=== PATIENT | female | born 1965 | race Caucasian/White ===

== ENCOUNTER 2019-07-20 15:30 | Inpatient (IN) | payer BC, OTHER ==
[2019-07-20] MEDS ORDERED: SODIUM CHLORIDE 0.9% 500 ML 500 ML IV STA (15:44)
[2019-07-20] MEDS ORDERED: SODIUM CHLORIDE 0.9% 1,000 ML IV STA ×2 (15:44)
[2019-07-20] MEDS ORDERED: ONDANSETRON 4 MG/2 ML VIAL IVP STA (15:49)
[2019-07-20] MEDS: MORPHINE SULFATE 2 MG/ML SYRINGE IVP STA ×2 (16:10→17:38)
[2019-07-20 16:19] LABS: Basophils % (A) 0 %; Eosinophils # (A) 0.3 k/uL (0-0.7); Eosinophils % (A) 2 %; HCT 45.7 % (34.0-46.0); HGB 14.5 gm/dL (11.4-16.0); Hypochromasia Slight; Lymphocytes # (A) 1.1 k/uL (1.0-4.8); Lymphocytes % (A) 5 %; MCH 27.6 pg (25.0-35.0); MCHC 31.8 g/dL (31.0-37.0); MCV 86.7 fL (80.0-100.0); Mean Platelet Volume 8.3; Monocytes # (A) 0.5 k/uL (0-1.0); Monocytes % (A) 2 %; Neutrophils # (A) 18.5 k/uL (1.3-7.7); Neutrophils % (A) 90 %; Platelet Count 341 k/uL (150-450); RBC 5.27 m/uL (3.80-5.40); RDW 13.7 % (11.5-15.5); WBC 20.4 k/uL (3.8-10.6)
[2019-07-20 16:27] LABS: ALT 15 U/L (4-34); AST 16 U/L (14-36); African American GFR (CKD) >90 (>60 ml/min/1.73 sqM); Albumin 5.1 g/dL (3.5-5.0); Alkaline Phosphatase 102 U/L (38-126); Amylase 96 U/L (30-110); Anion Gap 21 mmol/L; Blood Urea Nitrogen 14 mg/dL (7-17); Calcium 10.3 mg/dL (8.4-10.2); Carbon Dioxide 18 mmol/L (22-30); Chloride 98 mmol/L (98-107); Glucose 361 mg/dL (74-99); Non-African American GFR(CKD) >90 (>60 ml/min/1.73 sqM); Potassium 4.2 mmol/L (3.5-5.1); Sodium 137 mmol/L (137-145); Total Bilirubin 0.8 mg/dL (0.2-1.3); Total Protein 8.4 g/dL (6.3-8.2)
--- NOTE | 2019-07-20 16:50 | US ---
EXAMINATION TYPE: US abdomen limited DATE OF EXAM: 07/20/2019 COMPARISON: NONE CLINICAL HISTORY: RUQ/epigastric pain. Vomiting. Difficult and limited exam due to overlying bowel ga s and patient vomiting during exam EXAM MEASUREMENTS: Liver Length: 16.6 cm Gallbladder Wall: 0.2 cm CBD: 0.5 cm Right Kidney: 10.3 x 6.1 x 5.9 cm Pancreas: Obscured by bowel gas Liver: Heterogeneous, coarse echotexture. Attenuating Gallbladder: wnl Evidence for sonographic Farley's sign: No CBD: wnl as visualized, distal portion obscured by bowel gas Right Kidney: No hydronephrosis or masses seen Suboptimal evaluation of pancreas on images saved. Visualized liver is heterogeneously hyperechoic. E valuation for focal masses suboptimal due to the heterogeneity. Gallbladder and right kidney appear w ithin normal limits. IMPRESSION: No shadowing mobile gallstones or ultrasound evidence for acute cholecystitis. Marked het erogeneous hyperechoic appearance of the liver could reflect product of diffuse fatty infiltration an d/or underlying hepatocellular disease. Correlate clinically.
[2019-07-20 17:06] LABS: Appearance,Urine Clear (Clear); Bilirubin,Urine Negative (Negative); Blood,Urine Trace (Negative); Color,Urine Light Yellow; Glucose,Urine (UA) 4+ (Negative); Leukocyte Esterase,Urine Negative (Negative); Mucus,Urine Rare /hpf; Nitrite,Urine Negative (Negative); PH, Urine 5.5 (5.0-8.0); Protein,Urine 1+ (Negative); RBC,Urine 1 /hpf (0-5); Specific Gravity,Urine 1.032 (1.001-1.035); Squamous Epithelial Cell,Urine 1 /hpf (0-4); Urobilinogen,Urine <2.0 mg/dL (<2.0); WBC,Urine 1 /hpf (0-5)
--- NOTE | 2019-07-20 17:07 | ED ---
Abdominal Pain HPI - General Source: patient Mode of arrival: wheelchair Limitations: no limitations <Obdulia Coelho - Last Filed: 07/20/19 19:47> <Freda Peña - Last Filed: 07/23/19 23:57> - General Chief Complaint: Abdominal Pain Stated Complaint: Vomitng Time Seen by Provider: 07/20/19 15:39 - History of Present Illness Initial Comments: 53-year-old. History of diabetes presented for chief complaint of nausea vomiting abdominal pain. Patient states that she has had nausea vomiting abdominal pain for the past week. She states has been getting worse. Patient states she feels slightly short of breath. Patient denies any chest pain. Patient denies any fevers or cough. Patient admit to diarrhea and states that today there was some blood in in but not all of the stool was blood. Patient states that the abdominal pain is upper in nature. Patient was concerned maybe it was related to her gallbladder. Patient denies any additional complaints. Upon arrival patient is actively vomiting up clear liquid she states she just drank a lot of water. (Obdulia Coelho) - Related Data Home Medications Medication Instructions Recorded Confirmed Atorvastatin [Lipitor] 40 mg PO DAILY 07/20/19 07/20/19 Dextroamphetamine/Amphetamine 20 mg PO DAILY 07/20/19 07/20/19 [Adderall] Fluticasone Nasal [place] [Flonase 2 spr EA NOSTRIL DAILY 07/20/19 07/20/19 Nasal [place]] Lisinopril [Zestril] 2.5 mg PO DAILY 07/20/19 07/20/19 glipiZIDE [Glucotrol] 5 mg PO HS 07/20/19 07/20/19 glipiZIDE [Glucotrol] 10 mg PO DAILY 07/20/19 07/20/19 metFORMIN HCL ER [Glucophage Xr] 1,500 mg PO AC-SUPPER 07/20/19 07/20/19 Allergies Allergy/AdvReac Type Severity Reaction Status Date / Time No Known Allergies Allergy Verified 07/20/19 19:09 Review of Systems ROS Other: All systems not noted in ROS Statement are negative. <Obdulia Coelho - Last Filed: 07/20/19 19:47> ROS Other: All systems not noted in ROS Statement are negative. <Freda Peña - Last Filed: 07/23/19 23:57> ROS Statement: Those systems with pertinent positive or pertinent negative responses have been documented in the HPI. Past Medical History Past Medical History: Diabetes Mellitus History of Any Multi-Drug Resistant Organisms: None Reported Past Surgical History: Section, Tubal Ligation Past Psychological History: ADD/ADHD Smoking Status: Current every day smoker Past Alcohol Use History: None Reported Past Drug Use History: Marijuana <Obdulia Coelho - Last Filed: 07/20/19 19:47> General Exam Limitations: no limitations <LaquitaObdulia Church - Last Filed: 07/20/19 19:47> - General Exam Comments Initial Comments: General: The patient is awake and alert, in no distress, actively vomiting Eye: Pupils are equal, round and reactive to light, extra-ocular movements are intact. No nystagmus. There is normal conjunctiva bilaterally. No signs of icterus. Cardiovascular: There is a regular rate and rhythm. No murmur, rub or gallop is appreciated. Respiratory: Lungs are clear to auscultation, respirations are non-labored, breath sounds are equal. No wheezes, stridor, rales, or rhonchi. Gastrointestinal: Soft, non-distended, diffusely tender abdomen without masses or organomegaly noted. There is no rebound or guarding present. Musculoskeletal: Normal ROM, no tenderness. Strength 5/5. Sensation intact. Pulses equal bilaterally 2+. Neurological: A&O x 3. CN II-XII intact grossly, There are no obvious motor or sensory deficits. Coordination appears grossly intact. Speech is normal. Skin: Skin is warm and dry and no rashes or lesions are noted. Psychiatric: Cooperative, appropriate mood & affect, normal judgment. (Obdulia Coelho) Course Vital Signs 07/20/19 07/20/19 07/20/19 15:34 17:39 18:55 Temperature 97.9 F 98.6 F 98.1 F Pulse Rate 87 83 Pulse Rate [ 88 Pulse Oximetery ] Respiratory 18 28 H 20 Rate Blood Pressure 152/82 153/62 Blood Pressure 155/80 [Right Arm] O2 Sat by Pulse 100 98 100 Oximetry 07/20/19 07/20/19 07/20/19 19:39 20:28 21:14 Temperature 97.6 F 97.8 F Pulse Rate 92 92 88 Pulse Rate [ Pulse Oximetery ] Respiratory 18 22 20 Rate Blood Pressure 153/72 143/63 137/52 Blood Pressure [Right Arm] O2 Sat by Pulse 98 98 98 Oximetry Medical Decision Making - Lab Data Result diagrams: 07/20/19 16:00 07/20/19 16:00 <Obdulia Coelho - Last Filed: 07/20/19 19:47> - Lab Data Result diagrams: 07/23/19 10:21 07/23/19 10:21 <Freda Peña - Last Filed: 07/23/19 23:57> - Medical Decision Making 53-year-old diabetic who has no previous history of DKA presenting today for chief complaint of nausea vomiting diarrhea some blood was noted in the diarrhea as well as abdominal cramping. On CT patient is found to have a colitis which is consistent patient's history. Patient was found to be in DKA with anion gap of 21, acetone positive and +4 glucose and ketones in urine-which was more likel precipitated by the colitis (illness). Patient has not been able to keep an ything down and therefore starvation is compounding the ketosis. Patient initiated on zosyn given leukocytosis and blood in stool concern for infectious colitis. Blood culture pending. Will have GI on consultation. Patient Give IV fluids and insulin drip in the ER. Patient on telemetry remains a hold in the ER but further care will be provided by the accepting admitting provider which has been accepted. Dr. Peña agreeable to care plan (Obdulia Coelho) I was available for consultation in the emergency department. The history and physical exam were done by the midlevel provider. I was consulted for this patients care. I reviewed the case with the midlevel provider and based on their presentation of the patient, I agree with the assessment, medical decision making and plan of care as documented. Patient admitted to Dr. Mast. Chart was dictated using Sw[employer] dictation software. Attempts were made to correct any dictation errors however some typographical errors may persist. Patient was seen during a national state of emergency due to the Covid-19 pandemic. (Freda Peña) - Lab Data Lab Results 07/20/19 07/20/19 07/20/19 Range/Units 16:00 16:00 16:00 WBC 20.4 H (3.8-10.6) k/uL RBC 5.27 (3.80-5.40) m/uL Hgb 14.5 (11.4-16.0) gm/dL Hct 45.7 (34.0-46.0) % MCV 86.7 (80.0-100.0) fL MCH 27.6 (25.0-35.0) pg MCHC 31.8 (31.0-37.0) g/dL RDW 13.7 (11.5-15.5) % Plt Count 341 (150-450) k/uL Neutrophils % 90 % Lymphocytes % 5 % Monocytes % 2 % Eosinophils % 2 % Basophils % 0 % Neutrophils # 18.5 H (1.3-7.7) k/uL Lymphocytes # 1.1 (1.0-4.8) k/uL Monocytes # 0.5 (0-1.0) k/uL Eosinophils # 0.3 (0-0.7) k/uL Basophils # 0.0 (0-0.2) k/uL Hypochromasia Slight Sample Site ABG pH (7.35-7.45) ABG pCO2 (35-45) mmHg ABG pO2 (83-108) mmHg ABG HCO3 (21-25) mmol/L ABG Total CO2 (19-24) mmol/L ABG O2 Saturation (94-97) % ABG Base Excess mmol/L Izaiah Test FiO2 % Sodium 137 (137-145) mmol/L Potassium 4.2 (3.5-5.1) mmol/L Chloride 98 (98-107) mmol/L Carbon Dioxide 18 L (22-30) mmol/L Anion Gap 21 mmol/L BUN 14 (7-17) mg/dL Creatinine 0.62 (0.52-1.04) mg/dL Est GFR (CKD-EPI)AfAm >90 (>60 ml/min/1.73 sqM) Est GFR (CKD-EPI)NonAf >90 (>60 ml/min/1.73 sqM) Glucose 361 H (74-99) mg/dL Lactic Ac Sepsis Rflx Plasma Lactic Acid David (0.7-2.0) mmol/L Calcium 10.3 H (8.4-10.2) mg/dL Phosphorus 3.6 (2.5-4.5) mg/dL Magnesium 2.1 (1.6-2.3) mg/dL Total Bilirubin 0.8 (0.2-1.3) mg/dL AST 16 (14-36) U/L ALT 15 (4-34) U/L Alkaline Phosphatase 102 (38-126) U/L Total Protein 8.4 H (6.3-8.2) g/dL Albumin 5.1 H (3.5-5.0) g/dL Amylase 96 (30-110) U/L Lipase 650 H (23-300) U/L Acetone, Qual Positive (Negative) 07/20/19 07/20/19 07/20/19 Range/Units 16:00 18:13 18:45 WBC (3.8-10.6) k/uL RBC (3.80-5.40) m/uL Hgb (11.4-16.0) gm/dL Hct (34.0-46.0) % MCV (80.0-100.0) fL MCH (25.0-35.0) pg MCHC (31.0-37.0) g/dL RDW (11.5-15.5) % Plt Count (150-450) k/uL Neutrophils % % Lymphocytes % % Monocytes % % Eosinophils % % Basophils % % Neutrophils # (1.3-7.7) k/uL Lymphocytes # (1.0-4.8) k/uL Monocytes # (0-1.0) k/uL Eosinophils # (0-0.7) k/uL Basophils # (0-0.2) k/uL Hypochromasia Sample Site lrad ABG pH 7.39 (7.35-7.45) ABG pCO2 32 L (35-45) mmHg ABG pO2 73 L (83-108) mmHg ABG HCO3 20 L (21-25) mmol/L ABG Total CO2 21 (19-24) mmol/L ABG O2 Saturation 95.0 (94-97) % ABG Base Excess -5.4 mmol/L Izaiah Test Yes FiO2 21 % Sodium (137-145) mmol/L Potassium (3.5-5.1) mmol/L Chloride (98-107) mmol/L Carbon Dioxide (22-30) mmol/L Anion Gap mmol/L BUN (7-17) mg/dL Creatinine (0.52-1.04) mg/dL Est GFR (CKD-EPI)AfAm (>60 ml/min/1.73 sqM) Est GFR (CKD-EPI)NonAf (>60 ml/min/1.73 sqM) Glucose (74-99) mg/dL Lactic Ac Sepsis Rflx Y Plasma Lactic Acid David 2.2 H* (0.7-2.0) mmol/L Calcium (8.4-10.2) mg/dL Phosphorus (2.5-4.5) mg/dL Magnesium (1.6-2.3) mg/dL Total Bilirubin (0.2-1.3) mg/dL AST (14-36) U/L ALT (4-34) U/L Alkaline Phosphatase (38-126) U/L Total Protein (6.3-8.2) g/dL Albumin (3.5-5.0) g/dL Amylase (30-110) U/L Lipase (23-300) U/L Acetone, Qual (Negative) Disposition Is patient prescribed a controlled substance at d/c from ED?: No Time of Disposition: 18:30 Decision to Admit Reason: Admit from EC Decision Date: 07/20/19 Decision Time: 18:30 <Obdulia Coelho - Last Filed: 07/20/19 19:47> <Freda Peña - Last Filed: 07/23/19 23:57> Clinical Impression: DKA (diabetic ketoacidoses), Vomiting, Nausea, Abdominal pain, Colitis Disposition: ADMITTED IP TO THIS HOSP Condition: Stable
[2019-07-20 17:13] LABS: Ketones,Urine 4+ (Negative)
[2019-07-20] MEDS ORDERED: SODIUM CHLORIDE 0.9% 1,000 ML IV ONE (17:14)
--- NOTE | 2019-07-20 18:02 | XR ---
EXAMINATION TYPE: XR chest 2V DATE OF EXAM: 07/20/2019 COMPARISON: NONE HISTORY: New onset diabetic ketoacidosis rule out infection. Fever. TECHNIQUE: Frontal and lateral views of the chest are obtained. FINDINGS: There is no focal air space opacity, pleural effusion, or pneumothorax seen. The cardiac silhouette size is within normal limits. Multilevel spurring in thoracic spine is present. IMPRESSION: No suspicious acute pulmonary process.
[2019-07-20 18:15] LABS: ABG Base Excess -5.4 mmol/L; ABG HCO3 20 mmol/L (21-25); ABG PCO2 32 mmHg (35-45); ABG PH 7.39 (7.35-7.45); ABG PO2 73 mmHg (83-108); ABG TCO2 21 mmol/L (19-24); Allen Test Performed? Yes
[2019-07-20] MEDS ORDERED: SODIUM CHLORIDE 0.9% 1,000 ML IV SCH (18:30)
[2019-07-20] MEDS ORDERED: INSULIN REGULAR 100 UNIT in SODIUM CHLORIDE 0.9% 100 ML IV SCH (18:30)
--- NOTE | 2019-07-20 18:34 | CT ---
EXAMINATION TYPE: CT abdomen pelvis w con DATE OF EXAM: 07/20/2019 HISTORY: Upper Abdominal pain with nausea and vomiting CT DLP: 1110.5mGycm Automated Exposure Control for Dose Reduction was Utilized. CONTRAST: CT scan of the abdomen and pelvis is performed without oral but with IV Contrast, patient injected wi th 100 mL of Isovue 300. COMPARISON: Ultrasound abdomen limited July 20, 2019 FINDINGS: LUNG BASES: No significant abnormality is appreciated. LIVER/GB: Heterogeneous hypodense liver consistent with diffuse fatty infiltration as seen on recent ultrasound. PANCREAS: Normal size pancreas without areas of nonenhancement. No focal splenic solid or cystic lesi ons. SPLEEN: Spleen is subcentimeter hypodense lesions too small to further characterize scattered through out. There is additional 1.6 cm low dense lesion inferiorly axial image 28. All lesions less well see n on delayed images suggesting some degree of enhancement. Etiology uncertain. ADRENALS: Slight thickening to the inferior aspect left adrenal gland/27 with mild surrounding fluid coronal image 53 for reference. KIDNEYS: Fairly simple-appearing thin-walled 1.9 cm cyst centrally left kidney upper to midpole level coronal image 57. Symmetric cortical medullary uptake and excretion without hydronephrosis seen bila terally. There is retroaortic left renal vein seen which is normal variant. BOWEL: No suspicious small or large bowel dilatation. Suboptimal evaluation without enteric contrast . Mild wall thickening from hepatic flexure through the rectum. Finding could reflect product of mild uncomplicated acute colitis versus product of poor distention. Correlate clinically. UTERUS/ADNEXA: Anteverted uterus. Normal-sized ovaries. LYMPH NODES: No greater than 1cm abdominal or pelvic lymph nodes are appreciated. OSSEOUS STRUCTURES: Multilevel facet arthropathy mid to lower lumbar spine. OTHER: Mild calcified plaque of the aorta extends into branch vessels. IMPRESSION: 1. Possible fairly long segment mild uncomplicated acute colitis versus product of poor distention. C orrelate clinically. Differential includes infectious and/or inflammatory etiologies. 2. Slight thickening and surrounding inflammatory change involving the inferior aspect of the left ad renal gland, etiology uncertain. Pancreas is normal in size without area of nonenhancement but inflam mation from adjacent acute pancreatitis would be in differential. 3. Scattered round hypodense lesions throughout the spleen of uncertain etiology. Further nonemergent workup advised.
[2019-07-20 18:42] LABS: Magnesium 2.1 mg/dL (1.6-2.3); Phosphorus 3.6 mg/dL (2.5-4.5)
[2019-07-20] MEDS ORDERED: PIPERACILLIN-TAZOBACTAM 3.375 GM in SODIUM CHLORIDE 0.9% 100 ML IVPB STA (18:57)
[2019-07-20 19:02] LABS: Glucose,Whole Blood 356 mg/dL (75-99)
[2019-07-20] MEDS ORDERED: ONDANSETRON 4 MG/2 ML VIAL IVP PRN (19:26)
[2019-07-20 20:20] LABS: Glucose,Whole Blood 283 mg/dL (75-99)
[2019-07-20] MEDS: D5-0.45% NACL WITH KCL 20MEQ/L 1,000 ML IV SCH (20:32)
[2019-07-20 20:54] LABS: African American GFR (CKD) >90 (>60 ml/min/1.73 sqM); Anion Gap 11 mmol/L; Blood Urea Nitrogen 14 mg/dL (7-17); Carbon Dioxide 20 mmol/L (22-30); Chloride 106 mmol/L (98-107); Glucose 266 mg/dL (74-99); Non-African American GFR(CKD) >90 (>60 ml/min/1.73 sqM); Phosphorus 2.4 mg/dL (2.5-4.5); Potassium 4.6 mmol/L (3.5-5.1); Sodium 137 mmol/L (137-145)
[2019-07-20 21:18] LABS: Glucose,Whole Blood 252 mg/dL (75-99)
[2019-07-20] MEDS ORDERED: MAGNESIUM SULFATE-D5W PMX 1 GM in DEXTROSE/WATER 1 100ML.BAG IVPB ONE (21:21)
[2019-07-20] MEDS: PANTOPRAZOLE 40 MG/10 ML VIAL IVP SCH (21:48)
[2019-07-20 22:19] LABS: Glucose,Whole Blood 230 mg/dL (75-99)
[2019-07-20 22:37] LABS: ALT 15 U/L (4-34); AST 17 U/L (14-36); African American GFR (CKD) >90 (>60 ml/min/1.73 sqM); Albumin 4.2 g/dL (3.5-5.0); Alkaline Phosphatase 73 U/L (38-126); Anion Gap 10 mmol/L; Blood Urea Nitrogen 14 mg/dL (7-17); Calcium 8.8 mg/dL (8.4-10.2); Carbon Dioxide 22 mmol/L (22-30); Chloride 106 mmol/L (98-107); Glucose 238 mg/dL (74-99); Non-African American GFR(CKD) >90 (>60 ml/min/1.73 sqM); Potassium 3.3 mmol/L (3.5-5.1); Sodium 138 mmol/L (137-145); Total Bilirubin 0.5 mg/dL (0.2-1.3); Total Protein 7.4 g/dL (6.3-8.2)
[2019-07-20] MEDS ORDERED: Potassium Replacement Protocol 1 EACH MISC MISCELLANE PRN (22:56)
[2019-07-20] MEDS ORDERED: INSULIN DETEMIR (LEVEMIR) 100 UNIT/ML SYR SQ ONE (23:00)
[2019-07-20] MEDS: POTASSIUM CHLORIDE ER 20 MEQ TAB.ER PO SCH (23:32)
[2019-07-20] MEDS: ONDANSETRON 4 MG/2 ML VIAL IVP SCH (23:32)
[2019-07-21] MEDS: D5-0.45% NACL WITH KCL 20MEQ/L 1,000 ML IV SCH ×4 (01:30→19:29)
[2019-07-21 02:05] LABS: Glucose,Whole Blood 217 mg/dL (75-99)
[2019-07-21] MEDS: POTASSIUM CHLORIDE ER 20 MEQ TAB.ER PO SCH ×2 (04:58→06:37)
[2019-07-21] MEDS: ONDANSETRON 4 MG/2 ML VIAL IVP SCH ×4 (04:58→22:56)
[2019-07-21 06:12] LABS: Glucose,Whole Blood 215 mg/dL (75-99)
[2019-07-21] MEDS: INSULIN ASPART (NovoLOG) 100 UNIT/ML VIAL SQ SCH ×7 (06:36→20:38)
[2019-07-21 08:12] LABS: ALT 13 U/L (4-34); AST 16 U/L (14-36); African American GFR (CKD) >90 (>60 ml/min/1.73 sqM); Albumin 4.2 g/dL (3.5-5.0); Alkaline Phosphatase 74 U/L (38-126); Anion Gap 11 mmol/L; Blood Urea Nitrogen 14 mg/dL (7-17); Calcium 9.3 mg/dL (8.4-10.2); Carbon Dioxide 23 mmol/L (22-30); Chloride 104 mmol/L (98-107); Glucose 160 mg/dL (74-99); Non-African American GFR(CKD) >90 (>60 ml/min/1.73 sqM); Potassium 4.1 mmol/L (3.5-5.1); Sodium 138 mmol/L (137-145); Total Bilirubin 0.5 mg/dL (0.2-1.3); Total Protein 7.3 g/dL (6.3-8.2)
[2019-07-21 08:21] LABS: Glucose,Whole Blood 289 mg/dL (75-99)
[2019-07-21] MEDS: PANTOPRAZOLE 40 MG/10 ML VIAL IVP SCH ×2 (08:38→19:29)
[2019-07-21 09:25] LABS: Glucose,Whole Blood 175 mg/dL (75-99)
--- NOTE | 2019-07-21 11:14 | P.CONS ---
History of Present Illness - Reason for Consult Consult date: 07/21/19 Nausea and vomiting, blood per rectum Requesting physician: Nader Mast - Chief Complaint Nausea, vomiting, blood per rectum, diarrhea - History of Present Illness 53-year-old female with a past medical history significant for diabetes mellitus who presented to the hospital with constellation of symptoms. The patient reports one week of symptom worsening and prompting her to present to the hospital for further evaluation, including nausea, vomiting, diarrhea and abdominal pain. The patient reports multiple episodes of nausea and vomiting, unable to tolerate oral intake. She also had multiple episodes of loose stool with blood noted with the bowel movements. Patient reports diffuse abdominal pain, worse in the upper abdomen. She has a remote history of EGD which she reports was performed in evaluation of reflux. No prior colonoscopy reported. On presentation to the hospital she had WBC 20.4, hemoglobin 14.5, platelet count 441,000, total bilirubin 0.5, alkaline phosphatase 74, AST 16 and ALT 13. Computed tomography scan of the abdomen showed possible inflammation from the hepatic flexure to the rectum. Review of Systems REVIEW OF SYSTEMS: CONSTITUTIONAL: Denies any fevers, chills, weight change or fatigue. CARDIOVASCULAR: Denies any chest pain, palpitations high or low blood pressures RESPIRATORY: Denies any shortness of breath, hemoptysis or cough. GENITOURINARY: No dysuria or hematuria. MUSCULOSKELETAL: No weakness reported. SKIN: Denies any new rashes or lesions, jaundice or pallor. PSYCHIATRIC: Denies any depression or anxiety. NEUROLOGY: Denies headache, denies any new focal deficits. EARS/NOSE/THROAT: No recent hearing change, congestion, nasal discharge or sore throat. EYES: No pain in eyes, discharge or change in vision. GASTROINTESTINAL: As per HPI. Past Medical History Past Medical History: Diabetes Mellitus History of Any Multi-Drug Resistant Organisms: None Reported Past Surgical History: Section, Tubal Ligation Past Psychological History: ADD/ADHD Smoking Status: Current every day smoker Past Alcohol Use History: None Reported Past Drug Use History: Marijuana Additional History: Family history: Reviewed with the patient noncontributory to current medical presentation. Medications and Allergies Home Medications Medication Instructions Recorded Confirmed Type Atorvastatin [Lipitor] 40 mg PO DAILY 07/20/19 07/20/19 History Dextroamphetamine/Amphetamine 20 mg PO DAILY 07/20/19 07/20/19 History [Adderall] Fluticasone Nasal [place] [Flonase 2 spr EA NOSTRIL DAILY 07/20/19 07/20/19 History Nasal [place]] Lisinopril [Zestril] 2.5 mg PO DAILY 07/20/19 07/20/19 History glipiZIDE [Glucotrol] 5 mg PO HS 07/20/19 07/20/19 History glipiZIDE [Glucotrol] 10 mg PO DAILY 07/20/19 07/20/19 History metFORMIN HCL ER [Glucophage Xr] 1,500 mg PO AC-SUPPER 07/20/19 07/20/19 History Allergies Allergy/AdvReac Type Severity Reaction Status Date / Time No Known Allergies Allergy Verified 07/20/19 19:09 Physical Exam Vitals: Vital Signs Temp Pulse Pulse Resp BP BP Pulse Ox 07/21/19 08:00 98.0 F 74 16 145/70 98 07/21/19 04:00 98.2 F 85 18 138/72 97 07/20/19 23:19 82 18 142/75 98 07/20/19 21:14 88 20 137/52 98 07/20/19 20:28 97.8 F 92 22 143/63 98 07/20/19 19:39 97.6 F 92 18 153/72 98 07/20/19 18:55 98.1 F 88 20 155/80 100 07/20/19 17:39 98.6 F 83 28 H 153/62 98 07/20/19 15:34 97.9 F 87 18 152/82 100 Intake and Output 07/20/19 07/21/19 07/21/19 22:59 06:59 14:59 Intake Total 30.244 Balance 30.244 Intake: Intake, IV Titration 30.244 Amount Insulin Regular 100 unit 30.244 In Sodium Chloride 0.9% 100 ml @ 0.1 UNITS/KG/HR 8.704 mls/hr IV .[id number] [facility] Rx#:[id number] Other: # Voids 1 Weight 86.183 kg 84 kg On physical examination, patient appears comfortable in no apparent distress. HEAD: Normocephalic, atraumatic. EYES: No scleral icterus. No conjunctival injection. MOUTH: No lesions, tongue midline. NECK: Trachea midline, no gross abnormalities. CHEST: Clear to auscultation with no wheezing or rhonchi appreciated. HEART: Regular rate and rhythm. ABDOMEN: Soft, mildly tender to palpation. Bowel sounds are positive. No organomegaly. No guarding or rigidity. EXTREMITIES: No pedal edema. SKIN: No rashes, no jaundice. NEUROLOGIC: Alert and oriented x3. No focal deficits. Results CBC & Chem 7: 07/20/19 16:00 07/21/19 07:21 Labs: Abnormal Lab Results - Last 24 Hours (Table) 07/20/19 07/20/19 07/20/19 Range/Units 16:00 16:00 16:00 WBC 20.4 H (3.8-10.6) k/uL Neutrophils # 18.5 H (1.3-7.7) k/uL ABG pCO2 (35-45) mmHg ABG pO2 (83-108) mmHg ABG HCO3 (21-25) mmol/L Potassium (3.5-5.1) mmol/L Carbon Dioxide 18 L (22-30) mmol/L Creatinine (0.52-1.04) mg/dL Glucose 361 H (74-99) mg/dL POC Glucose (mg/dL) (75-99) mg/dL Plasma Lactic Acid David 2.2 H* (0.7-2.0) mmol/L Calcium 10.3 H (8.4-10.2) mg/dL Phosphorus (2.5-4.5) mg/dL Total Protein 8.4 H (6.3-8.2) g/dL Albumin 5.1 H (3.5-5.0) g/dL Lipase 650 H (23-300) U/L Urine Protein (Negative) Urine Glucose (UA) (Negative) Urine Ketones (Negative) Urine Blood (Negative) Urine Mucus (None) /hpf 07/20/19 07/20/19 07/20/19 Range/Units 18:13 19:01 20:18 WBC (3.8-10.6) k/uL Neutrophils # (1.3-7.7) k/uL ABG pCO2 32 L (35-45) mmHg ABG pO2 73 L (83-108) mmHg ABG HCO3 20 L (21-25) mmol/L Potassium (3.5-5.1) mmol/L Carbon Dioxide (22-30) mmol/L Creatinine (0.52-1.04) mg/dL Glucose (74-99) mg/dL POC Glucose (mg/dL) 356 H 283 H (75-99) mg/dL Plasma Lactic Acid David (0.7-2.0) mmol/L Calcium (8.4-10.2) mg/dL Phosphorus (2.5-4.5) mg/dL Total Protein (6.3-8.2) g/dL Albumin (3.5-5.0) g/dL Lipase (23-300) U/L Urine Protein (Negative) Urine Glucose (UA) (Negative) Urine Ketones (Negative) Urine Blood (Negative) Urine Mucus (None) /hpf 07/20/19 07/20/19 07/20/19 Range/Units 20:24 21:13 22:12 WBC (3.8-10.6) k/uL Neutrophils # (1.3-7.7) k/uL ABG pCO2 (35-45) mmHg ABG pO2 (83-108) mmHg ABG HCO3 (21-25) mmol/L Potassium (3.5-5.1) mmol/L Carbon Dioxide 20 L (22-30) mmol/L Creatinine (0.52-1.04) mg/dL Glucose 266 H (74-99) mg/dL POC Glucose (mg/dL) 252 H (75-99) mg/dL Plasma Lactic Acid David 2.3 H* (0.7-2.0) mmol/L Calcium (8.4-10.2) mg/dL Phosphorus 2.4 L (2.5-4.5) mg/dL Total Protein (6.3-8.2) g/dL Albumin (3.5-5.0) g/dL Lipase (23-300) U/L Urine Protein (Negative) Urine Glucose (UA) (Negative) Urine Ketones (Negative) Urine Blood (Negative) Urine Mucus (None) /hpf 07/20/19 07/20/19 07/20/19 Range/Units 22:12 22:18 Unknown WBC (3.8-10.6) k/uL Neutrophils # (1.3-7.7) k/uL ABG pCO2 (35-45) mmHg ABG pO2 (83-108) mmHg ABG HCO3 (21-25) mmol/L Potassium 3.3 L (3.5-5.1) mmol/L Carbon Dioxide (22-30) mmol/L Creatinine (0.52-1.04) mg/dL Glucose 238 H (74-99) mg/dL POC Glucose (mg/dL) 230 H (75-99) mg/dL Plasma Lactic Acid David (0.7-2.0) mmol/L Calcium (8.4-10.2) mg/dL Phosphorus (2.5-4.5) mg/dL Total Protein (6.3-8.2) g/dL Albumin (3.5-5.0) g/dL Lipase (23-300) U/L Urine Protein 1+ H (Negative) Urine Glucose (UA) 4+ H (Negative) Urine Ketones 4+ H (Negative) Urine Blood Trace H (Negative) Urine Mucus Rare H (None) /hpf 07/21/19 07/21/19 07/21/19 Range/Units 02:04 06:11 07:21 WBC (3.8-10.6) k/uL Neutrophils # (1.3-7.7) k/uL ABG pCO2 (35-45) mmHg ABG pO2 (83-108) mmHg ABG HCO3 (21-25) mmol/L Potassium (3.5-5.1) mmol/L Carbon Dioxide (22-30) mmol/L Creatinine 0.51 L (0.52-1.04) mg/dL Glucose 160 H (74-99) mg/dL POC Glucose (mg/dL) 217 H 215 H (75-99) mg/dL Plasma Lactic Acid David (0.7-2.0) mmol/L Calcium (8.4-10.2) mg/dL Phosphorus (2.5-4.5) mg/dL Total Protein (6.3-8.2) g/dL Albumin (3.5-5.0) g/dL Lipase (23-300) U/L Urine Protein (Negative) Urine Glucose (UA) (Negative) Urine Ketones (Negative) Urine Blood (Negative) Urine Mucus (None) /hpf 07/21/19 07/21/19 Range/Units 08:20 09:22 WBC (3.8-10.6) k/uL Neutrophils # (1.3-7.7) k/uL ABG pCO2 (35-45) mmHg ABG pO2 (83-108) mmHg ABG HCO3 (21-25) mmol/L Potassium (3.5-5.1) mmol/L Carbon Dioxide (22-30) mmol/L Creatinine (0.52-1.04) mg/dL Glucose (74-99) mg/dL POC Glucose (mg/dL) 289 H 175 H (75-99) mg/dL Plasma Lactic Acid David (0.7-2.0) mmol/L Calcium (8.4-10.2) mg/dL Phosphorus (2.5-4.5) mg/dL Total Protein (6.3-8.2) g/dL Albumin (3.5-5.0) g/dL Lipase (23-300) U/L Urine Protein (Negative) Urine Glucose (UA) (Negative) Urine Ketones (Negative) Urine Blood (Negative) Urine Mucus (None) /hpf CT scan - abdomen: report reviewed (Computed tomography scan of the abdomen and pelvis with multiple findings including suspected inflammation from the hepatic flexure to the rectum.) Assessment and Plan (1) Nausea Narrative/Plan: 53-year-old female with a medical history significant for diabetes mellitus presented to the hospital with complaints of nausea, vomiting, abdominal pain, diarrhea and blood per rectum. Symptoms progressive over the past week. Patient with uncontrolled blood sugars on presentation. Computed tomography scan was suggestive of colitis from the hepatic flexure to the rectum. Currently on antibiotic therapy. Symptoms likely multifactorial given uncontrolled blood sugars as well as findings of colitis. No prior colonoscopy, she does report a remote history of EGD for investigation of reflux. Current Visit: Yes Status: Acute Code(s): R11.0 - NAUSEA SNOMED Code(s): 654005129 (2) Abdominal pain Current Visit: Yes Status: Acute Code(s): R10.9 - UNSPECIFIED ABDOMINAL PAIN SNOMED Code(s): 24472290 (3) Colitis Current Visit: Yes Status: Acute Code(s): K52.9 - NONINFECTIVE G ASTROENTERITIS AND COLITIS, UNSPECIFIED SNOMED Code(s): 53470036 (4) Vomiting Current Visit: Yes Status: Acute Code(s): R11.10 - VOMITING, UNSPECIFIED SNOMED Code(s): 743420032 (5) Blood per rectum Narrative/Plan: Patient reports multiple episodes of bright red blood per rectum. Hemoglobin currently stable at 14.5. Suspicion for perirectal disease. No prior colonoscopy. Current Visit: Yes Status: Acute Code(s): K62.5 - HEMORRHAGE OF ANUS AND RECTUM SNOMED Code(s): 69992582 Plan: Supportive care Continue IV fluid hydration Tight glycemic control Continue to monitor CBC, BMP, LFTs Zofran change to [id number] Tigan added as needed for breakthrough nausea Protonix 40 mg twice daily added Ceftriaxone and Flagyl added for suspected infectious colitis No plan for endoscopy at this time, we'll reevaluate pending clinical course and labs, patient was offered endoscopy did not feel she could prep given her symptoms Thank you for allowing us to participate in the care of the patient
[2019-07-21 11:23] LABS: Glucose,Whole Blood 156 mg/dL (75-99)
[2019-07-21] MEDS: metroNIDAZOLE-NS PMX 500 MG in SALINE 1 100ML.BAG IVPB SCH ×2 (15:31→22:12)
[2019-07-21] MEDS: TRIMETHOBENZAMIDE 100 MG/ML 2 ML VIAL IM PRN (15:52)
--- NOTE | 2019-07-21 16:21 | HP ---
HISTORY AND PHYSICAL CHIEF COMPLAINT: Nausea and vomiting for several days. HISTORY OF PRESENT ILLNESS: This is the first known admission for this 53-year-old white female with type 2 NIDDM. She has been on oral agents and states her blood sugar has been under fairly good control, but lately her sugar has been rising. She thought she ate something that caused the problem. She came into the emergency room, her blood sugars were high and she was diabetic ketoacidosis. REVIEW OF SYSTEMS: She has had no neurologic problems, difficulty with vision or hearing, chest pain, shortness of breath, hypertension, heart disease, murmurs, rheumatic fever, hematemesis, melena, hematochezia, jaundice, renal failure, dysuria, frequency, urgency, incontinence, etc. PAST MEDICAL HISTORY, FAMILY HISTORY, PERSONAL AND SOCIAL HISTORIES: Reveal she has no allergies. Surgically, she has had 2 C sections and a tubal ligation. She has had 2 pregnancies and 2 deliveries. She does work and smokes a pack of cigarettes a day. She is complaining of some upper abdominal pain. PHYSICAL EXAMINATION: Blood pressure is 143/88 with a pulse of 99, respirations of 38, and she is afebrile. In general, she appeared to be slightly overweight, in no acute distress. Skin color is normal, skin is warm, dry. Lymph nodes are not enlarged. Head, ears, eyes, nose, mouth, and throat are normal. Neck veins are not distended. Thyroid is not enlarged. Chest is clear. Cardiac exam demonstrates sinus tachycardia and the abdomen is slightly protuberant. Abdomen is soft and she is slightly tender over the upper abdomen. Bowel sounds are present. Extremities are normal. Neurologically, she is intact. She is admitted to the hospital diagnoses: 1. Diabetic ketoacidosis. 2. Type 2 NIDDM. 3. Upper abdominal pain. PLAN: 1. Bed rest. 2. IV fluids. 3. Correct electrolyte imbalance. 4. Correct acidosis. 5. Start insulin management. 6. Diabetes education. 7. Try proton pump inhibitor. MMODL / IJN: [id number] /
--- NOTE | 2019-07-21 16:28 | PN ---
PROGRESS NOTE DATE OF SERVICE: 07/21/2019 CHIEF COMPLAINT: DKA and abdominal pain. HISTORY OF PRESENT ILLNESS: This lady is doing better. Anion gap is closed and she is no longer vomiting. She is complaining of some epigastric discomfort and is probably due to gastritis or GERD. PHYSICAL EXAMINATION: Vital signs are normal. Chest is clear. The cardiac exam is normal and the abdomen is soft and slightly tender over the epigastrium. IMPRESSION: 1. Diabetic ketoacidosis. 2. Dehydration. 3. Epigastric pain. PLAN: 1. Diabetic education. 2. Continue insulin management. 3. Continue to evaluate epigastric discomfort. MMODL / IJN: [id number] /
[2019-07-21 16:29] LABS: Glucose,Whole Blood 154 mg/dL (75-99)
[2019-07-21 19:54] LABS: Glucose,Whole Blood 147 mg/dL (75-99)
[2019-07-22] MEDS: D5-0.45% NACL WITH KCL 20MEQ/L 1,000 ML IV SCH ×3 (02:13→18:50)
[2019-07-22] MEDS: TRIMETHOBENZAMIDE 100 MG/ML 2 ML VIAL IM PRN ×3 (02:29→22:45)
[2019-07-22] MEDS: INSULIN ASPART (NovoLOG) 100 UNIT/ML VIAL SQ SCH ×6 (05:56→22:02)
[2019-07-22 05:58] LABS: Glucose,Whole Blood 235 mg/dL (75-99)
[2019-07-22] MEDS: ONDANSETRON 4 MG/2 ML VIAL IVP SCH ×4 (06:00→17:30)
[2019-07-22] MEDS: metroNIDAZOLE-NS PMX 500 MG in SALINE 1 100ML.BAG IVPB SCH ×2 (09:42→17:31)
[2019-07-22] MEDS: PANTOPRAZOLE 40 MG/10 ML VIAL IVP SCH ×2 (09:43→22:03)
[2019-07-22 11:36] LABS: Glucose,Whole Blood 235 mg/dL (75-99)
[2019-07-22 11:46] LABS: Basophils % (A) 0 %; Eosinophils # (A) 0.2 k/uL (0-0.7); Eosinophils % (A) 2 %; HCT 42.1 % (34.0-46.0); HGB 13.3 gm/dL (11.4-16.0); Lymphocytes # (A) 1.6 k/uL (1.0-4.8); Lymphocytes % (A) 11 %; MCH 26.9 pg (25.0-35.0); MCHC 31.7 g/dL (31.0-37.0); MCV 84.9 fL (80.0-100.0); Mean Platelet Volume 7.8; Monocytes # (A) 0.6 k/uL (0-1.0); Monocytes % (A) 4 %; Neutrophils # (A) 12.6 k/uL (1.3-7.7); Neutrophils % (A) 83 %; Platelet Count 260 k/uL (150-450); RBC 4.96 m/uL (3.80-5.40); RDW 13.5 % (11.5-15.5); WBC 15.2 k/uL (3.8-10.6)
[2019-07-22 12:00] LABS: ALT 15 U/L (4-34); AST 23 U/L (14-36); African American GFR (CKD) >90 (>60 ml/min/1.73 sqM); Albumin 3.9 g/dL (3.5-5.0); Alkaline Phosphatase 72 U/L (38-126); Anion Gap 12 mmol/L; Blood Urea Nitrogen 13 mg/dL (7-17); Calcium 8.9 mg/dL (8.4-10.2); Carbon Dioxide 25 mmol/L (22-30); Chloride 97 mmol/L (98-107); Glucose 234 mg/dL (74-99); Non-African American GFR(CKD) >90 (>60 ml/min/1.73 sqM); Potassium 4.1 mmol/L (3.5-5.1); Sodium 134 mmol/L (137-145); Total Bilirubin 0.5 mg/dL (0.2-1.3); Total Protein 6.9 g/dL (6.3-8.2)
[2019-07-22] MEDS: KETOROLAC 30 MG/ML 1 ML VIAL IVP PRN ×2 (13:13→18:43)
[2019-07-22 16:23] LABS: Glucose,Whole Blood 254 mg/dL (75-99)
--- NOTE | 2019-07-22 16:31 | PN ---
PROGRESS NOTE DATE OF DICTATION: 07/22/2019 The patient is a 53-year-old pleasant white female admitted to the hospital with acute onset of nausea, vomiting, abdominal pain, diarrhea with some rectal bleeding for the last 3 day's duration. She continues to have persistent abdominal pain with nausea, vomiting. She was seen by Dr. Marcos on consultation yesterday and was scheduled for an EGD, colonoscopy, but she could not drink any prep and hence the procedures were canceled. Today, she states the pain is mostly in the epigastric area. The diarrhea is better. The bleeding has resolved. She is on empiric antibiotics for possible colitis. PHYSICAL EXAMINATION: Appears comfortable, in no apparent distress. Vital signs are stable, blood pressure 143/74, pulse is 70, temperature is 98.8. HEENT: Examination unremarkable, conjunctivae are pink, sclerae nonicteric, oral cavity no lesions. NECK: No JVD or lymph node enlargement. CHEST: Clear to auscultation. HEART: Regular rate and rhythm. ABDOMEN: Soft. Bowel sounds are positive. Mild tenderness in the epigastric area. There was mild diffuse tenderness throughout the abdomen. EXTREMITIES: No pedal edema. SKIN: No rashes. NEUROLOGIC: Alert and oriented x3. No focal deficits. LABS: From today WBC of 15.2, hemoglobin 13, platelets normal, basic metabolic panel is within normal limits. IMPRESSION: 1. Acute onset of nausea, vomiting, diarrhea with some blood in the stool for the last [address] of the abdomen showed diffuse thickening of the colon from the hepatic flexure to the rectum consistent with colitis. Presently on empiric antibiotics for possible infectious colitis and the symptoms are gradually improving. She continues to have persistent epigastric pain with nausea, vomiting. 2. Diabetes mellitus. 3. Hypertension. 4. Hypercholesteremia. RECOMMENDATIONS: 1. Continue with empiric antibiotics. 2. Antiemetics as needed. 3. Continue IV Protonix 40 mg twice daily. 4. Will start her on a clear liquid diet. 5. We will proceed with an upper endoscopy tomorrow to evaluate further. The plan was discussed with the patient. She is agreeable to it. Thank you for this consultation. MMODL / IJN: [id number] /
--- NOTE | 2019-07-22 17:14 | PN ---
PROGRESS NOTE CHIEF COMPLAINT: DKA. HISTORY OF PRESENT ILLNESS: This lady is still not doing well. Sugars are down. However, they are still slightly elevated. In reviewing her record, the Levemir that was ordered was never entered by the nurse. She is still complaining of nausea and vomiting and she has had no fever and she still has some upper gastric and upper abdominal discomfort. Her lipase is elevated. Amylase is normal. PHYSICAL EXAMINATION: Chest is clear. Cardiac exam is normal. The abdomen is a little bit tender over the epigastrium. Extremities are normal. IMPRESSION: 1. DKA. 2. Intractable nausea and vomiting. 3. Pancreatitis. PLAN: Repeat laboratory studies and continue to attend monitor her lipase. MMODL / IJN: [id number] /
[2019-07-22 20:09] LABS: Glucose,Whole Blood 193 mg/dL (75-99)
[2019-07-23] MEDS: D5-0.45% NACL WITH KCL 20MEQ/L 1,000 ML IV SCH ×3 (00:59→15:32)
[2019-07-23] MEDS: metroNIDAZOLE-NS PMX 500 MG in SALINE 1 100ML.BAG IVPB SCH ×4 (01:04→22:00)
[2019-07-23] MEDS: ONDANSETRON 4 MG/2 ML VIAL IVP SCH ×5 (04:40→22:01)
[2019-07-23 06:01] LABS: Glucose,Whole Blood 234 mg/dL (75-99)
[2019-07-23] MEDS: INSULIN DETEMIR (LEVEMIR) 100 UNIT/ML SYR SQ SCH (06:58)
[2019-07-23] MEDS: INSULIN ASPART (NovoLOG) 100 UNIT/ML VIAL SQ SCH ×7 (07:05→22:01)
[2019-07-23 07:47] LABS: Glucose,Whole Blood 264 mg/dL (75-99)
[2019-07-23] MEDS ORDERED: LACTATED RINGERS 1,000 ML IV SCH (08:36)
[2019-07-23] MEDS: PANTOPRAZOLE 40 MG/10 ML VIAL IVP SCH ×2 (08:41→22:00)
[2019-07-23] MEDS: KETOROLAC 30 MG/ML 1 ML VIAL IVP PRN ×3 (08:58→22:09)
[2019-07-23 10:56] LABS: Basophils % (A) 0 %; Eosinophils # (A) 0.1 k/uL (0-0.7); Eosinophils % (A) 1 %; HCT 42.9 % (34.0-46.0); HGB 13.7 gm/dL (11.4-16.0); Lymphocytes # (A) 2.1 k/uL (1.0-4.8); Lymphocytes % (A) 13 %; MCH 27.3 pg (25.0-35.0); MCHC 32.1 g/dL (31.0-37.0); MCV 85.2 fL (80.0-100.0); Monocytes # (A) 0.7 k/uL (0-1.0); Monocytes % (A) 5 %; Neutrophils # (A) 12.6 k/uL (1.3-7.7); Neutrophils % (A) 81 %; Platelet Count 262 k/uL (150-450); RBC 5.03 m/uL (3.80-5.40); RDW 13.4 % (11.5-15.5); WBC 15.6 k/uL (3.8-10.6)
[2019-07-23 11:07] LABS: ALT 16 U/L (4-34); AST 22 U/L (14-36); African American GFR (CKD) >90 (>60 ml/min/1.73 sqM); Albumin 3.9 g/dL (3.5-5.0); Alkaline Phosphatase 65 U/L (38-126); Anion Gap 8 mmol/L; Blood Urea Nitrogen 17 mg/dL (7-17); Calcium 8.9 mg/dL (8.4-10.2); Carbon Dioxide 25 mmol/L (22-30); Chloride 101 mmol/L (98-107); Glucose 168 mg/dL (74-99); Non-African American GFR(CKD) >90 (>60 ml/min/1.73 sqM); Potassium 3.7 mmol/L (3.5-5.1); Sodium 134 mmol/L (137-145); Total Bilirubin 0.5 mg/dL (0.2-1.3); Total Protein 6.9 g/dL (6.3-8.2)
[2019-07-23 11:58] LABS: Glucose,Whole Blood 134 mg/dL (75-99)
[2019-07-23] MEDS ORDERED: PROPOFOL 10 MG/ML 20 ML VIAL IV ONE (12:38)
[2019-07-23 12:51] VITALS: BMI 30.2
[2019-07-23] MEDS ORDERED: IV FLUID CONTINUATION 1,000 ML IV ONE (12:52)
--- NOTE | 2019-07-23 12:53 | P.PCN ---
Date of Procedure: 07/23/19 Procedure(s) Performed: BRIEF HISTORY: Patient is a 53-year-old, pleasant, admitted to the hospital with acute onset of nausea vomiting severe epigastric pain and diarrhea with small amount of blood in the stool. His been hospital with diarrhea and rectal bleeding have subsided. CAT scan showed thickening of the colon and presently on empiric antibiotics. She was scheduled for an upper endoscopy as well as colonoscopy as recorded in the past. Because of the persistent epigastric pain she is scheduled for only an upper endoscopy today.. PROCEDURE PERFORMED: EGD With biopsy. PREOPERATIVE DIAGNOSIS: With epigastric pain/nausea vomiting. IV sedation per anesthesia. PROCEDURE: After informed consent was obtained, the patient was brought into the endoscopy unit. IV sedation was administered by Anesthesia under continuous monitoring. Initially the Olympus GIF-140 video endoscope was inserted into the mouth. Esophagus intubated without any difficulty. It was gradually advanced into the stomach and duodenum and carefully examined. The bulb had mild duodenitis and the second part of the duodenum appeared normal. The scope at this time was withdrawn to the stomach, adequately insufflated with air, and upon careful examination, mucosa of the antrum, had mild gastritis and biopsies were done from this area. body, cardia and the fundus appeared normal. The scope was then withdrawn into the esophagus. The GE junction was located at 36 cm from the incisors. Moderate size hiatal hernia noted. There were linear erosions and ulcerations in the distal esophagus consistent with LA grade B reflux esophagitis. There was an early distal esophageal stricture noted. The rest of esophagus appeared normal and the patient tolerated the procedure well. IMPRESSION: 1. Erosions in the distal esophagus consistent with LA grade B reflux esophagitis with early distal esophageal stricture. 2. Moderate size hiatal Hernia. 3. Mild antral gastritis and duodenitis RECOMMENDATIONS: The findings of this examination were discussed with the patient. Follow with the biopsy results. She will be started on a full liquid diet and continue Protonix 40 mg twice daily..
[2019-07-23 14:13] LABS: Glucose,Whole Blood 123 mg/dL (75-99)
[2019-07-23] MEDS: TRIMETHOBENZAMIDE 100 MG/ML 2 ML VIAL IM PRN (15:44)
[2019-07-23 16:13] VITALS: TEMP 98.1
[2019-07-23 16:43] LABS: Glucose,Whole Blood 146 mg/dL (75-99)
--- NOTE | 2019-07-23 17:32 | PN ---
PROGRESS NOTE DATE OF SERVICE: 07/23/2019. CHIEF COMPLAINT: Uncontrolled diabetes and abdominal pain. HISTORY OF PRESENT ILLNESS: This lady is still having significant abdominal discomfort, which is fairly generalized. She is still very nauseated and still vomiting occasionally. She is going for an upper GI endoscopy today. PHYSICAL EXAMINATION: Her chest is clear. The cardiac exam is normal and the abdomen is soft and she is crusher tender over the epigastrium. There are no masses or visceromegaly. IMPRESSION: 1. Upper abdominal pain with nausea and vomiting, etiology unknown. 2. Uncontrolled diabetes mellitus. PLAN: 1. Upper GI endoscopy today. 2. Continue insulin management. 3. Diabetic education. MMODL / IJN: [id number] /
[2019-07-23 20:50] LABS: Glucose,Whole Blood 244 mg/dL (75-99)
[2019-07-24 06:24] LABS: Glucose,Whole Blood 279 mg/dL (75-99)
[2019-07-24] MEDS: ONDANSETRON 4 MG/2 ML VIAL IVP SCH ×2 (06:31→12:44)
[2019-07-24] MEDS: INSULIN DETEMIR (LEVEMIR) 100 UNIT/ML SYR SQ SCH (06:32)
[2019-07-24] MEDS: INSULIN ASPART (NovoLOG) 100 UNIT/ML VIAL SQ SCH ×3 (06:32→12:41)
[2019-07-24] MEDS: PANTOPRAZOLE 40 MG/10 ML VIAL IVP SCH (08:41)
[2019-07-24] MEDS: metroNIDAZOLE-NS PMX 500 MG in SALINE 1 100ML.BAG IVPB SCH (08:42)
[2019-07-24 08:51] VITALS: RESP 16
[2019-07-24] MEDS ORDERED: INSULIN ASPART (NovoLOG) 100 UNIT/ML VIAL SQ SCH (12:30)
[2019-07-24 12:32] LABS: Glucose,Whole Blood 112 mg/dL (75-99)
--- NOTE | 2019-07-24 12:46 | PN ---
PROGRESS NOTE DATE OF DICTATION: July 24, 2019 Patient is a 53-year-old pleasant white female admitted to hospital with acute onset of severe nausea, vomiting, abdominal pain, diarrhea and some rectal bleeding. She was started on empiric antibiotics for possible infectious colitis. Because of the persistent upper GI symptoms, she underwent an upper endoscopy 2 days ago that showed evidence of severe reflux esophagitis with early esophageal stricture. Presently on Protonix 40 mg twice daily. Symptoms are much better. In fact, she is on a regular diet, tolerating well. Abdominal pain has completely resolved. Diarrhea and rectal bleeding have resolved. She wants to go home today. PHYSICAL EXAMINATION: She appears comfortable in no apparent distress. Vital signs stable. Blood pressure is 142/79, pulse rate 77, temperature 98.1. HEENT examination unremarkable. Conjunctivae pink. Sclerae anicteric. Oral cavity no lesions. NECK: No JVD or lymph node enlargement. CHEST: Clear to auscultation. HEART: Regular rate and rhythm. ABDOMEN: Soft. Bowel sounds are positive. No organomegaly. EXTREMITIES: No pedal edema. SKIN no rashes. NEUROLOGIC: Alert and oriented x3. No focal deficits. LABS: From today not available. Yesterday labs were normal except for white count of 15.6. IMPRESSION: 1. Nausea and vomiting, and epigastric pain, status post EGD 2 days ago that showed severe reflux esophagitis with early esophageal stricture on Protonix 40 mg twice daily, doing much better. 2. Diarrhea and rectal bleeding of 2 days duration, possibly infectious colitis on empiric antibiotics. Symptoms are significantly improved. RECOMMENDATION: 1. Advance diet to a low-fiber diet. 2. Continue Protonix 40 mg twice daily. 3. Diet, anti-reflux measures discussed with the patient. 4. She can be discharged home today and she was advised to follow up with her Building Maintenance Technician in [facility]. Thank you for this consultation. MMODL / IJN: [id number] /
[2019-07-24 13:01] VITALS: BP 114/73; PULSE 89
[2019-07-24] MEDS ORDERED: metFORMIN 500 MG TAB PO SCH (17:30)
--- NOTE | 2019-07-24 23:52 | DS ---
DISCHARGE SUMMARY CHIEF COMPLAINT: Nausea, vomiting, and DKA. HISTORY OF PRESENT ILLNESS AND PHYSICAL EXAM: Details of this lady's history and physical can be found in the initial workup. LABORATORY STUDIES: While she was in the hospital, she had laboratory studies, details of which can be found in the laboratory section of her chart. COURSE IN HOSPITAL: After admission, she was placed on bedrest, started on intravenous fluids and management of her nausea and vomiting. She continued to have nausea for several days as well as some epigastric pain. She was worked up for abdominal pain. There was a suggestion that she may have colitis, but she continued to have epigastric discomfort. Eventually, she was referred to Gastroenterology and taken for endoscopy, which demonstrated gastritis with some reflux. While she was in the hospital, she was transitioned to insulin and she was reasonably well controlled, but sugars were still slightly elevated. It was felt that she could be discharged. She will go home on activity as tolerated. She will be on insulin management. She will follow up either with her own physician or with us in several days. FINAL DIAGNOSES: 1. Diabetic ketoacidosis. 2. Dehydration. 3. Uncontrolled insulin dependent diabetes mellitus. 4. Esophagitis. 5. Gastroesophageal reflux disease. 6. Hiatal hernia. 7. Early esophageal stricture. OPERATIONS: Endoscopy. CONSULTATIONS: Gastroenterology. She is improved. MMODL / IJN: [id number] /
[2019-07-25] MEDS ORDERED: INSULIN DETEMIR (LEVEMIR) 100 UNIT/ML SYR SQ SCH (07:00)
[2019-07-25] MEDS ORDERED: ATORVASTATIN 40 MG TAB PO SCH (09:00)
[2019-07-25] MEDS ORDERED: NON FORMULARY DRUG (Dextroamphetamine/Amphetamine [Adderall] 20 MG) PO SCH (09:00)
[2019-07-25] MEDS ORDERED: FLUTICASONE 50MCG/SPRAY NASAL 16GM EA NOSTRIL SCH (09:00)
[2019-07-25] MEDS ORDERED: LISINOPRIL 2.5 MG TAB PO SCH (09:00)
== END 2019-07-24 14:23 | disposition home or self-care (01) | DRG 638 ==
LOC: EC 15:30 → 3SCARD 18:48
PROVIDERS: ADMIT Family Medicine; ATTEND Family Medicine
PROC: 0DB98ZX Excision of Duodenum, Via Natural or Artificial Opening Endoscopic, Diagnostic (ICD-10-PCS; principal; 2019-07-23 12:05)
PROC: 0DB78ZX Excision of Stomach, Pylorus, Via Natural or Artificial Opening Endoscopic, Diagnostic (ICD-10-PCS; principal; 2019-07-23 12:05)
DX: E11.10 Type 2 diabetes mellitus with ketoacidosis without coma (principal); K22.10 Ulcer of esophagus without bleeding; A09 Infectious gastroenteritis and colitis, unspecified; F90.9 Attention-deficit hyperactivity disorder, unspecified type; F17.200 Nicotine dependence, unspecified, uncomplicated; E86.0 Dehydration; E78.00 Pure hypercholesterolemia, unspecified; I10 Essential (primary) hypertension; K21.0 Gastro-esophageal reflux disease with esophagitis; K22.2 Esophageal obstruction; K29.70 Gastritis, unspecified, without bleeding; K29.80 Duodenitis without bleeding; K44.9 Diaphragmatic hernia without obstruction or gangrene; Z79.899 Other long term (current) drug therapy; Z79.84 Long term (current) use of oral hypoglycemic drugs; Z98.891 History of uterine scar from previous surgery; Z98.51 Tubal ligation status; Z11.59 Encounter for screening for other viral diseases
CPT/HCPCS: 36415; 36600; 43239; 71046; 74177; 76705; 80051; 80053; 81001; 82009; 82150; 82565; 82805; 82947; 83605; 83690; 83735; 84100; 84520; 85025; 87040; 87635; 88305; 93005; 96361; 96365; 96375; 96376; 99285

== ENCOUNTER 2021-12-02 05:06 | Observation (INO) | payer BC ==
[2021-12-02] MEDS ORDERED: SODIUM CHLORIDE 0.9% 1,000 ML IV STA ×3 (05:24→06:55)
[2021-12-02] MEDS ORDERED: ONDANSETRON 4 MG/2 ML VIAL IVP STA (05:24)
--- NOTE | 2021-12-02 05:25 | ED ---
Weakness HPI - General Chief complaint: Shortness of Breath Stated complaint: Diabetes,MITCHELL Time Seen by Provider: 12/02/21 05:24 Source: patient, RN notes reviewed, old records reviewed Mode of arrival: ambulatory Limitations: no limitations - History of Present Illness Initial comments: This is a 56-year-old female to the emergency department for evaluation. Patient presents today for evaluation regards to MD Complaint: generalized weakness -: days(s) Location: generalized Severity: moderate Severity scale (1-10): 7 Quality: tingling, numbness Consistency: constant Improves with: none Worsens with: none Context: history of similar Associated Symptoms: loss of appetite, nausea/vomiting, shortness of breath - Related Data Home Medications Medication Instructions Recorded Confirmed Dextroamphetamine/Amphetamine 20 mg PO DAILY 07/20/19 12/02/21 [Adderall] Citalopram Hydrobromide 20 mg PO DAILY 12/02/21 12/02/21 [Citalopram HBr] INSULIN ASPART (NovoLOG) [NovoLOG See Protocol SQ TID-W/MEALS PRN 12/02/21 12/02/21 (formulary)] metFORMIN HCL 500 mg PO TID 12/02/21 12/02/21 Allergies Allergy/AdvReac Type Severity Reaction Status Date / Time No Known Allergies Allergy Verified 12/02/21 12:06 Review of Systems ROS Statement: Those systems with pertinent positive or pertinent negative responses have been documented in the HPI. ROS Other: All systems not noted in ROS Statement are negative. Past Medical History Past Medical History: Diabetes Mellitus History of Any Multi-Drug Resistant Organisms: None Reported Past Surgical History: Section, Tubal Ligation Past Psychological History: ADD/ADHD Smoking Status: Current every day smoker Past Alcohol Use History: None Reported Past Drug Use History: Marijuana General Exam Limitations: no limitations General appearance: alert, in no apparent distress, anxious Head exam: Present: atraumatic, normocephalic, normal inspection Eye exam: Present: normal appearance, PERRL, EOMI. Absent: scleral icterus, conjunctival injection, periorbital swelling ENT exam: Present: normal exam, mucous membranes dry Neck exam: Present: normal inspection. Absent: tenderness, meningismus, lymphadenopathy Respiratory exam: Present: normal lung sounds bilaterally. Absent: respiratory distress, wheezes, rales, rhonchi, stridor Cardiovascular Exam: Present: regular rate, normal rhythm, tachycardia, normal heart sounds. Absent: systolic murmur, diastolic murmur, rubs, gallop, clicks GI/Abdominal exam: Present: soft, tenderness, normal bowel sounds. Absent: distended, guarding, rebound, rigid Extremities exam: Present: normal inspection, full ROM, normal capillary refill. Absent: tenderness, pedal edema, joint swelling, calf tenderness Back exam: Present: normal inspection Neurological exam: Present: alert, oriented X3, CN II-XII intact Psychiatric exam: Present: normal affect, normal mood Skin exam: Present: warm, dry, intact, normal color. Absent: rash Course Vital Signs 12/02/21 12/02/21 12/02/21 05:12 05:40 08:15 Temperature 97.9 F Pulse Rate 72 63 68 Respiratory 16 16 18 Rate Blood Pressure 171/87 159/71 134/61 O2 Sat by Pulse 98 99 97 Oximetry 12/02/21 10:29 Temperature Pulse Rate 65 Respiratory 18 Rate Blood Pressure 131/71 O2 Sat by Pulse 99 Oximetry - Reevaluation(s) Reevaluation #1: 12/03/21 Medical Is reviewed Patient feels improved here in the ER Patient informed of results and questions answered - Consultations Consultation #1: Spoke with admitting physicians who agree to admit the patient Medical Decision Making - Medical Decision Making 56 female to the emergency department for evaluation patient does have colitis with abdominal pain persistent nausea vomiting, unable to keep anything down here in the ER will place his observation for symptom management - Lab Data Result diagrams: 12/03/21 04:59 12/03/21 04:59 Lab Results 12/02/21 12/02/21 12/02/21 Range/Units 05:25 05:28 05:28 WBC 21.3 H (3.8-10.6) k/uL RBC 4.79 (3.80-5.40) m/uL Hgb 13.0 (11.4-16.0) gm/dL Hct 41.4 (34.0-46.0) % MCV 86.5 (80.0-100.0) fL MCH 27.1 (25.0-35.0) pg MCHC 31.3 (31.0-37.0) g/dL RDW 13.2 (11.5-15.5) % Plt Count 247 (150-450) k/uL MPV 8.7 Neutrophils % 86 % Lymphocytes % 10 % Monocytes % 3 % Eosinophils % 1 % Basophils % 0 % Neutrophils # 18.2 H (1.3-7.7) k/uL Lymphocytes # 2.0 (1.0-4.8) k/uL Monocytes # 0.6 (0-1.0) k/uL Eosinophils # 0.3 (0-0.7) k/uL Basophils # 0.1 (0-0.2) k/uL Sodium 137 (137-145) mmol/L Potassium 3.4 L (3.5-5.1) mmol/L Chloride 104 (98-107) mmol/L Carbon Dioxide 23 (22-30) mmol/L Anion Gap 10 mmol/L BUN 12 (7-17) mg/dL Creatinine 0.52 (0.52-1.04) mg/dL Est GFR (CKD-EPI)AfAm >90 (>60 ml/min/1.73 sqM) Est GFR (CKD-EPI)NonAf >90 (>60 ml/min/1.73 sqM) Glucose 224 H (74-99) mg/dL POC Glucose (mg/dL) 230 H (70-110) mg/dL POC Glu Executive Administrator ID [employer] [address] Glu mg/dL Hemoglobin A1c (0.0-6.0) % Calcium 9.6 (8.4-10.2) mg/dL Phosphorus 1.8 L (2.5-4.5) mg/dL Magnesium 1.8 (1.6-2.3) mg/dL Total Bilirubin 0.2 (0.2-1.3) mg/dL AST 18 (14-36) U/L ALT 17 (4-34) U/L Alkaline Phosphatase 71 (38-126) U/L Troponin I (0.000-0.034) ng/mL Total Protein 7.0 (6.3-8.2) g/dL Albumin 4.5 (3.5-5.0) g/dL Acetone, Qual Negative (Negative) 12/02/21 12/02/21 Range/Units 05:28 05:28 WBC (3.8-10.6) k/uL RBC (3.80-5.40) m/uL Hgb (11.4-16.0) gm/dL Hct (34.0-46.0) % MCV (80.0-100.0) fL MCH (25.0-35.0) pg MCHC (31.0-37.0) g/dL RDW (11.5-15.5) % Plt Count (150-450) k/uL MPV Neutrophils % % Lymphocytes % % Monocytes % % Eosinophils % % Basophils % % Neutrophils # (1.3-7.7) k/uL Lymphocytes # (1.0-4.8) k/uL Monocytes # (0-1.0) k/uL Eosinophils # (0-0.7) k/uL Basophils # (0-0.2) k/uL Sodium (137-145) mmol/L Potassium (3.5-5.1) mmol/L Chloride (98-107) mmol/L Carbon Dioxide (22-30) mmol/L Anion Gap mmol/L BUN (7-17) mg/dL Creatinine (0.52-1.04) mg/dL Est GFR (CKD-EPI)AfAm (>60 ml/min/1.73 sqM) Est GFR (CKD-EPI)NonAf (>60 ml/min/1.73 sqM) Glucose (74-99) mg/dL POC Glucose (mg/dL) (70-110) mg/dL POC Glu Executive Administrator ID Estimated Ave Glu mg/dL 198 Hemoglobin A1c 8.5 H (0.0-6.0) % Calcium (8.4-10.2) mg/dL Phosphorus (2.5-4.5) mg/dL Magnesium (1.6-2.3) mg/dL Total Bilirubin (0.2-1.3) mg/dL AST (14-36) U/L ALT (4-34) U/L Alkaline Phosphatase (38-126) U/L Troponin I <0.012 (0.000-0.034) ng/mL Total Protein (6.3-8.2) g/dL Albumin (3.5-5.0) g/dL Acetone, Qual (Negative) - Radiology Data Radiology results: report reviewed (Chest x-ray CT head and pelvis positive for colitis), image reviewed Disposition Clinical Impression: Vomiting, Nausea, Abdominal pain, Colitis, Weakness, Leukocytosis Disposition: ADMITTED IP TO THIS [facility] Condition: Fair Is patient prescribed a controlled substance at d/c from ED?: No Time of Disposition: 06:50
[2021-12-02 05:26] LABS: Glucose,Whole Blood 230 mg/dL (70-110)
[2021-12-02 05:39] LABS: Basophils # (A) 0.1 k/uL (0-0.2); Basophils % (A) 0 %; Eosinophils # (A) 0.3 k/uL (0-0.7); Eosinophils % (A) 1 %; HCT 41.4 % (34.0-46.0); Lymphocytes % (A) 10 %; MCH 27.1 pg (25.0-35.0); MCHC 31.3 g/dL (31.0-37.0); MCV 86.5 fL (80.0-100.0); Mean Platelet Volume 8.7; Monocytes # (A) 0.6 k/uL (0-1.0); Monocytes % (A) 3 %; Neutrophils # (A) 18.2 k/uL (1.3-7.7); Neutrophils % (A) 86 %; Platelet Count 247 k/uL (150-450); RBC 4.79 m/uL (3.80-5.40); RDW 13.2 % (11.5-15.5); WBC 21.3 k/uL (3.8-10.6)
[2021-12-02 05:51] LABS: ALT 17 U/L (4-34); AST 18 U/L (14-36); African American GFR (CKD) >90 (>60 ml/min/1.73 sqM); Albumin 4.5 g/dL (3.5-5.0); Alkaline Phosphatase 71 U/L (38-126); Anion Gap 10 mmol/L; Blood Urea Nitrogen 12 mg/dL (7-17); Calcium 9.6 mg/dL (8.4-10.2); Carbon Dioxide 23 mmol/L (22-30); Chloride 104 mmol/L (98-107); Glucose 224 mg/dL (74-99); Magnesium 1.8 mg/dL (1.6-2.3); Non-African American GFR(CKD) >90 (>60 ml/min/1.73 sqM); Phosphorus 1.8 mg/dL (2.5-4.5); Potassium 3.4 mmol/L (3.5-5.1); Sodium 137 mmol/L (137-145); Total Bilirubin 0.2 mg/dL (0.2-1.3)
[2021-12-02] MEDS ORDERED: POTASSIUM BICARBONATE/CIT AC 20 MEQ TABLET.EFF PO ONE (06:32)
--- NOTE | 2021-12-02 06:45 | XR ---
EXAMINATION TYPE: XR chest 1V portable DATE OF EXAM: 12/02/2021 COMPARISON: 07/20/2019 HISTORY: Chest pain. Diabetes. TECHNIQUE: Single view FINDINGS: There is no heart failure nor confluent pneumonic infiltrate. Costophrenic angles are clear . There are chest leads. Bony thorax is intact. No pleural effusion. Heart size is normal. IMPRESSION: No active cardiopulmonary disease. No change.
[2021-12-02] MEDS ORDERED: IPRATROPIUM-ALBUTEROL 3 ML NEB INHALATION PRN (06:55)
[2021-12-02] MEDS ORDERED: PROCHLORPERAZINE INJ 10 MG/2 ML VIAL IVP STA (06:55)
[2021-12-02] MEDS ORDERED: PROCHLORPERAZINE INJ 10 MG/2 ML VIAL IVP PRN (06:55)
[2021-12-02] MEDS ORDERED: MORPHINE SULFATE 4 MG/ML SYRINGE IV PRN (06:58)
[2021-12-02] MEDS ORDERED: HYDROmorphone 1 MG/ML 1 ML SYRINGE IVP STA (06:58)
[2021-12-02] MEDS ORDERED: NALOXONE 0.4 MG/ML 1 ML VIAL IV PRN (06:58)
--- NOTE | 2021-12-02 08:11 | CT ---
EXAMINATION TYPE: CT abdomen pelvis w con CT DLP: 1032.4 mGycm, Automated exposure control for dose reduction was used. DATE OF EXAM: 12/02/2021 8:00 AM COMPARISON: CT abdomen pelvis most recent from 07/20/2019. CLINICAL INDICATION:Female, 56 years old with history of pain; Abdominal pain TECHNIQUE: Axial CT of the abdomen and pelvis. Sagittal and coronal reformats were created on a [employer] workstation. Contrast used:100 mL of Isovue 300 with IV Contrast, Oral contrast used: without Oral Contrast FINDINGS: LOWER CHEST: Unremarkable ABDOMEN LIVER: There is a 9 mm arterial hyperenhancing lesion in the right hepatic lobe segment 7, which is s imilar prior. GALLBLADDER AND BILE DUCTS: Unremarkable. PANCREAS: Unremarkable. Multiple I would SPLEEN: Multiple hypodensities are seen throughout the splenic parenchyma measuring up to 1.9 cm. Sim ilar to prior. ADRENAL GLANDS: Similar fat stranding changes around the left adrenal gland inferiorly. KIDNEYS AND URETERS: No evidence of hydronephrosis or renal calculus. The ureters are unremarkable. PELVIS BLADDER: Unremarkable REPRODUCTIVE: Fibroid uterus. ABDOMEN & PELVIS STOMACH AND BOWEL: No evidence of bowel obstruction. Small hiatal hernia. Appendix is normal. There i s a decompressed colon with circumferential prominent quinones extending from the cecum to the rectum. PERITONEUM: No evidence of pneumoperitoneum or free fluid. VASCULATURE: No evidence of aortic aneurysm. MUSCULOSKELETAL: No acute osseous abnormalities LYMPH NODES: No gross evidence for lymphadenopathy. SOFT TISSUE/ABDOMINAL WALL: Unremarkable IMPRESSION: 1. Similar nondistention of the colon which may represent mild colitis. Correlate clinically. 2. Stable left adrenal gland with some asymmetric inflammation changes, etiology uncertain. 3. Similar round hypodense lesions throughout the spleen of uncertain etiology.
[2021-12-02 09:33] LABS: Amorphous Sediment,Urine Rare /hpf; Appearance,Urine Cloudy (Clear); Bilirubin,Urine Negative (Negative); Blood,Urine Negative (Negative); Color,Urine Light Yellow; Glucose,Urine (UA) 4+ (Negative); Hyaline Casts,Urine 1 /lpf (0-2); Ketones,Urine Negative (Negative); Leukocyte Esterase,Urine Negative (Negative); Mucus,Urine Rare /hpf; Nitrite,Urine Negative (Negative); PH, Urine 7.5 (5.0-8.0); Protein,Urine Negative (Negative); RBC,Urine 2 /hpf (0-5); Specific Gravity,Urine 1.034 (1.001-1.035); Squamous Epithelial Cell,Urine <1 /hpf (0-4); Urobilinogen,Urine <2.0 mg/dL (<2.0); WBC,Urine 1 /hpf (0-5)
[2021-12-02] MEDS: SODIUM CHLORIDE 0.9% 1,000 ML IV SCH ×2 (10:29→15:10)
[2021-12-02] MEDS ORDERED: DEXTROSE 50% SYRINGE 50 ML IVP PRN ×2 (10:53)
[2021-12-02 12:18] LABS: Glucose,Whole Blood 345 mg/dL (70-110)
[2021-12-02] MEDS: FAMOTIDINE 20 MG/2 ML VIAL IV SCH ×2 (12:34→19:36)
[2021-12-02] MEDS: INSULIN ASPART (NovoLOG) 100 UNIT/ML VIAL SQ SCH ×3 (12:35→19:36)
[2021-12-02] MEDS: HEPARIN SODIUM,PORCINE/PF 5,000 UNIT/0.5 ML SYRINGE SQ SCH (16:03)
[2021-12-02] MEDS: ONDANSETRON 4 MG/2 ML VIAL IVP PRN (16:03)
[2021-12-02 17:06] LABS: Glucose,Whole Blood 218 mg/dL (70-110)
[2021-12-02 21:18] LABS: Glucose,Whole Blood 217 mg/dL (70-110)
--- NOTE | 2021-12-02 23:56 | P.HPIM ---
History of Present Illness H&P Date: 12/02/21 Chief Complaint: nausea and vomiting Patient is a 56-year-old female with a known history of diabetes type 1, ADD/ADHD, currently everyday smoker and marijuana use presented to ER with complaints of nausea and vomiting started yesterday. Patient is also having abdominal pain mainly in the epigastric region. No complaints of chest pain or shortness of breath. Patient Snoopy getting into DKA and presented to ER for evaluation. Denies any dysuria or hematuria. No fever no chills. No headache or dizziness or lightheadedness. Laboratory data showed WBC 21.3 hemoglobin 13.0 and platelets 247 Sodium 137 potassium 3.4 bicarb is 23 BUN 12 and creatinine 0.52 and is still negative Chest x-ray showed no acute cardiopulmonary disease. No change. CT of the abdomen pelvis showed similar nondistention of the colon which may represent mild colitis. Correlate clinically. Stable left adrenal gland with some asymptomatic inflammatory changes. Etiology uncertain. Similar round hypodense lesions throughout the spleen of uncertain etiology. Review of Systems Constitutional: Patient denies any fever or chills . Generalized weakness. Abdomen: Nausea vomiting and epigastric abdominal pain. No diarrhea. Cardiovascular: Patient denies any chest pain or short of breath no palpitations. Respiratory: patient denied any cough . no sputum production. No shortness of breath Neurologic: Patient denied any numbness or tingling headache. Musculoskeletal: Patient denies any complaints of joint swelling or deformity. Skin: Negative Psychiatric: Negative Endocrine: No heat or cold intolerance. No recent weight gain. Genitourinary: No dysuria or hematuria. All other 14 point ROS negative except the above Past Medical History Past Medical History: Diabetes Mellitus History of Any Multi-Drug Resistant Organisms: None Reported Past Surgical History: Section, Tubal Ligation Past Psychological History: ADD/ADHD Smoking Status: Current every day smoker Past Alcohol Use History: None Reported Past Drug Use History: Marijuana Medications and Allergies Home Medications Medication Instructions Recorded Confirmed Type Dextroamphetamine/Amphetamine 20 mg PO DAILY 07/20/19 12/02/21 History [Adderall] Citalopram Hydrobromide 20 mg PO DAILY 12/02/21 12/02/21 History [Citalopram HBr] INSULIN ASPART (NovoLOG) [NovoLOG See Protocol SQ TID-W/MEALS PRN 12/02/21 12/02/21 History (formulary)] metFORMIN HCL 500 mg PO TID 12/02/21 12/02/21 History Insulin Detemir (Levemir) [Levemir] 10 unit SQ DAILY@0700 #300 each 12/04/21 Rx Allergies Allergy/AdvReac Type Severity Reaction Status Date / Time No Known Allergies Allergy Verified 12/02/21 12:06 Physical Exam Vitals: Vital Signs Temp Pulse Resp BP Pulse Ox 12/02/21 10:29 65 18 131/71 99 12/02/21 08:15 68 18 134/61 97 12/02/21 05:40 63 16 159/71 99 12/02/21 05:12 97.9 F 72 16 171/87 98 Intake and Output 12/01/21 12/02/21 12/02/21 22:59 06:59 14:59 Other: Weight 90.718 kg PHYSICAL EXAMINATION: Patient is lying in the bed comfortably, mild distress, awake alert and oriented.. HEENT: Normocephalic. Neck is supple. Pupils reactive. Nostrils clear. Oral c avity is moist. Neck reveals no JVD, carotid bruits, or thyromegaly. CHEST EXAMINATION: Trachea is central. Symmetrical expansion. Lung fowler clear to auscultation and percussion. CARDIAC: Normal S1, S2 with no gallops. No murmurs ABDOMEN: Soft. Bowel sounds present. Nontender. No organomegaly. No abdominal bruits. Extremities: reveal no edema. No clubbing or cyanosis Neurologically awake, alert, oriented x3 with well-coordinated movements. No focal deficits noted Skin: No rash or skin lesions. Psychiatric: Coperative. Nonsuicidal, Musculoskeletal: No joint swelling or deformity. Normal range of motion. Results CBC & Chem 7: 12/04/21 05:20 12/04/21 05:20 Labs: Abnormal Lab Results - Last 24 Hours (Table) 12/02/21 12/02/21 12/02/21 Range/Units 05:25 05:28 05:28 WBC 21.3 H (3.8-10.6) k/uL Neutrophils # 18.2 H (1.3-7.7) k/uL Potassium 3.4 L (3.5-5.1) mmol/L Glucose 224 H (74-99) mg/dL POC Glucose (mg/dL) 230 H (70-110) mg/dL Phosphorus 1.8 L (2.5-4.5) mg/dL Urine Appearance (Clear) Urine Glucose (UA) (Negative) Amorphous Sediment (None) /hpf Urine Mucus (None) /hpf 12/02/21 Range/Units 08:39 WBC (3.8-10.6) k/uL Neutrophils # (1.3-7.7) k/uL Potassium (3.5-5.1) mmol/L Glucose (74-99) mg/dL POC Glucose (mg/dL) (70-110) mg/dL Phosphorus (2.5-4.5) mg/dL Urine Appearance Cloudy H (Clear) Urine Glucose (UA) 4+ H (Negative) Amorphous Sediment Rare H (None) /hpf Urine Mucus Rare H (None) /hpf Thrombosis Risk Factor Assmnt - DVT/VTE Prophylaxis DVT/VTE Prophylaxis: Pharmacologic Prophylaxis ordered Assessment and Plan Assessment: Intractable nausea and vomiting Mild colitis. Infectious versus inflammatory. Hyperglycemia with uncontrolled diabetes type 1 Hypokalemia History of marijuana use Hypertension ADD/ADHD Currently everyday smoker DVT prophylaxis with heparin subcu Plan: Patient will be continued on IV hydration symptomatic management for nausea and vomiting and continue with pain management. Patient will be started on insulin sliding scale for blood sugar control. Follow-up CBC tomorrow and consider antibiotics. Replace electrolytes and follow closely. Time with Patient: Greater than 30
[2021-12-03] MEDS: HEPARIN SODIUM,PORCINE/PF 5,000 UNIT/0.5 ML SYRINGE SQ SCH ×4 (01:35→23:31)
[2021-12-03] MEDS: SODIUM CHLORIDE 0.9% 1,000 ML IV SCH ×4 (01:35→20:58)
[2021-12-03] MEDS: ONDANSETRON 4 MG/2 ML VIAL IVP PRN (03:18)
[2021-12-03 06:55] LABS: Glucose,Whole Blood 237 mg/dL (70-110)
[2021-12-03] MEDS: NON FORMULARY DRUG (Dextroamphetamine/Amphetamine [Adderall] 20 MG Tablet) PO SCH (08:56)
[2021-12-03] MEDS: INSULIN ASPART (NovoLOG) 100 UNIT/ML VIAL SQ SCH ×4 (08:56→21:35)
[2021-12-03] MEDS: FAMOTIDINE 20 MG/2 ML VIAL IV SCH ×2 (08:57→20:50)
[2021-12-03 09:33] LABS: African American GFR (CKD) 127.2 (60.0-200.0); Albumin 4.1 g/dL (3.8-4.9); Albumin/Globulin Ratio 1.95 (1.60-3.17); Anion Gap 12.9 mmol/L (10.00-18.00); BUN/Creat Ratio 15.4 Ratio (12.00-20.00); Blood Urea Nitrogen 7.7 mg/dL (9.0-27.0); Calcium 9.1 mg/dL (8.7-10.3); Carbon Dioxide 22.1 mmol/L (20.0-27.5); Globulin 2.1 g/dL (1.6-3.3); Magnesium 1.9 mg/dL (1.5-2.4); Non-African American GFR(CKD) 109.7 (60.0-200.0); Phosphorus 3.1 mg/dL (2.4-5.1); Potassium 3.7 mmol/L (3.5-5.5); Total Bilirubin 0.2 mg/dL (0.30-1.20); Total Protein 6.2 g/dL (6.2-8.2)
[2021-12-03 09:38] LABS: Basophils # (A) 0.02 X 10*3/uL (0.00-0.10); Basophils % (A) 0.1 %; Eosinophils # (A) 0 X 10*3/uL (0.04-0.35); Eosinophils % (A) 0 %; HCT 37.8 % (37.2-46.3); HGB 12.4 g/dL (12.0-15.0); Immature Grans, Automated 0.3 %; Lymphocytes # (A) 1.58 X 10*3/uL (0.90-5.00); Lymphocytes % (A) 10.3 %; MCH 28.1 pg (27.0-32.0); MCHC 32.8 g/dL (32.0-37.0); MCV 85.5 fL (80.0-97.0); Monocytes # (A) 0.66 X 10*3/uL (0.20-1.00); Monocytes % (A) 4.3 %; NRBC Per 100 WBC 0 /100 WBCS (0.0-0.0); Neutrophils # (A) 12.99 X 10*3/uL (1.80-7.70); Platelet Count 255 X 10*3/uL (140-440); RBC 4.42 X 10*6/uL (4.10-5.20)
[2021-12-03] MEDS: CITALOPRAM HYDROBROMIDE 20 MG TAB PO SCH (11:41)
[2021-12-03 11:57] LABS: Glucose,Whole Blood 251 mg/dL (70-110)
[2021-12-03 16:50] LABS: Glucose,Whole Blood 196 mg/dL (70-110)
[2021-12-03] MEDS: INSULIN DETEMIR (LEVEMIR) 100 UNIT/ML SYR SQ SCH (17:38)
[2021-12-03 21:24] LABS: Glucose,Whole Blood 180 mg/dL (70-110)
--- NOTE | 2021-12-04 02:22 | P.PN ---
Subjective Progress Note Date: 12/03/21 Patient is a 56-year-old female with a known history of diabetes type 1, ADD/ADHD, currently everyday smoker and marijuana use presented to ER with complaints of nausea and vomiting started yesterday. Patient is also having abdominal pain mainly in the epigastric region. No complaints of chest pain or shortness of breath. Patient Snoopy getting into DKA and presented to ER for evaluation. Denies any dysuria or hematuria. No fever no chills. No headache or dizziness or lightheadedness. Laboratory data showed WBC 21.3 hemoglobin 13.0 and platelets 247 Sodium 137 potassium 3.4 bicarb is 23 BUN 12 and creatinine 0.52 and is still negative Chest x-ray showed no acute cardiopulmonary disease. No change. CT of the abdomen pelvis showed similar nondistention of the colon which may represent mild colitis. Correlate clinically. Stable left adrenal gland with some asymptomatic inflammatory changes. Etiology uncertain. Similar round hypodense lesions throughout the spleen of uncertain etiology. 12/03/2021 Patient is lying in the bed awake alert and oriented x3. Nausea vomiting is much improved. Patient did have a bowel movement this morning. Will be started on clear liquid diet and advance as tolerated. No complaints of chest pain or shortness of breath. Abdominal pain is better. No dysuria or hematuria. No cough or sputum production. Patient's blood sugars elevated this morning and was given a dose of Levemir 10 units and continue with insulin sliding scale. Patient does use metformin and insulin sliding scale at home. Leukocytosis improving. Follow-up CBC and BMP tomorrow. Anticipate discharge in next 24 hours with hemoglobin. Current medications reviewed. Objective - Vital Signs Vital signs: Vital Signs Temp 98.2 F 12/03/21 14:32 Pulse 65 12/03/21 18:12 Resp 14 12/03/21 14:32 BP 113/64 12/03/21 14:32 Pulse Ox 98 12/03/21 14:32 FiO2 Intake & Output 12/03/21 12/03/21 12/04/21 06:59 18:59 06:59 Intake Total 500 Balance 500 Intake: Intake, IV Titration 500 Amount Sodium Chloride 0.9% 1, 500 000 ml @ 130 mls/hr IV . Q7H42M [facility] Rx#:[id number] Other: # Voids 2 1 1 - Exam PHYSICAL EXAMINATION: Patient is lying in the bed comfortably, no acute distress, awake alert and oriented.. HEENT: Normocephalic. Neck is supple. Pupils reactive. Nostrils clear. Oral cavity is moist. Neck reveals no JVD, carotid bruits, or thyromegaly. CHEST EXAMINATION: Trachea is central. Symmetrical expansion. Lung fowler clear to auscultation and percussion. CARDIAC: Normal S1, S2 with no gallops. No murmurs ABDOMEN: Soft. Bowel sounds present. mild epigastric tenderness. No organomegaly. No abdominal bruits. Extremities: reveal no edema. No clubbing or cyanosis Neurologically awake, alert, oriented x3 with well-coordinated movements. No focal deficits noted Skin: No rash or skin lesions. Psychiatric: Coperative. Nonsuicidal, Musculoskeletal: No joint swelling or deformity. Normal range of motion. - Labs CBC & Chem 7: 12/03/21 04:59 12/03/21 04:59 Labs: Abnormal Lab Results - Last 24 Hours (Table) 12/03/21 12/03/21 12/03/21 Range/Units 04:59 04:59 06:53 WBC 15.30 H (4.50-10.00) X 10*3/uL Immature Gran # 0.05 H (0.00-0.04) X 10*3/uL Neutrophils # 12.99 H (1.80-7.70) X 10*3/uL Eosinophils # 0 L (0.04-0.35) X 10*3/uL BUN 7.7 L (9.0-27.0) mg/dL Creatinine 0.5 L (0.6-1.5) mg/dL Glucose 218 H (70-110) mg/dL POC Glucose (mg/dL) 237 H (70-110) mg/dL Total Bilirubin 0.20 L (0.30-1.20) mg/dL AST 12 L (13-35) U/L 12/03/21 12/03/21 12/03/21 Range/Units 11:55 16:49 21:22 WBC (4.50-10.00) X 10*3/uL Immature Gran # (0.00-0.04) X 10*3/uL Neutrophils # (1.80-7.70) X 10*3/uL Eosinophils # (0.04-0.35) X 10*3/uL BUN (9.0-27.0) mg/dL Creatinine (0.6-1.5) mg/dL Glucose (70-110) mg/dL POC Glucose (mg/dL) 251 H 196 H 180 H (70-110) mg/dL Total Bilirubin (0.30-1.20) mg/dL AST (13-35) U/L Assessment and Plan Assessment: Intractable nausea and vomiting Mild colitis. Infectious versus inflammatory. Hyperglycemia with uncontrolled diabetes type 1 Hypokalemia History of marijuana use Hypertension ADD/ADHD Currently everyday smoker DVT prophylaxis with heparin subcu Plan: Patient will be continued on IV hydration symptomatic management for nausea and vomiting and continue with pain management. Patient was started on insulin sliding scale for blood sugar control. added levemir Follow-up CBC tomorrow . leukocytosis improving. Replace electrolytes and follow closely. Time with Patient: Greater than 30
[2021-12-04] MEDS: SODIUM CHLORIDE 0.9% 1,000 ML IV SCH ×2 (05:30→09:06)
[2021-12-04 07:06] LABS: Glucose,Whole Blood 239 mg/dL (70-110)
[2021-12-04] MEDS: CITALOPRAM HYDROBROMIDE 20 MG TAB PO SCH (09:03)
[2021-12-04] MEDS: HEPARIN SODIUM,PORCINE/PF 5,000 UNIT/0.5 ML SYRINGE SQ SCH (09:03)
[2021-12-04] MEDS: FAMOTIDINE 20 MG/2 ML VIAL IV SCH (09:04)
[2021-12-04] MEDS: INSULIN ASPART (NovoLOG) 100 UNIT/ML VIAL SQ SCH ×2 (09:04→13:23)
[2021-12-04] MEDS: NON FORMULARY DRUG (Dextroamphetamine/Amphetamine [Adderall] 20 MG Tablet) PO SCH (09:05)
[2021-12-04] MEDS: INSULIN DETEMIR (LEVEMIR) 100 UNIT/ML SYR SQ SCH (09:05)
[2021-12-04 09:20] LABS: Basophils # (A) 0.04 X 10*3/uL (0.00-0.10); Basophils % (A) 0.4 %; Eosinophils # (A) 0.07 X 10*3/uL (0.04-0.35); Eosinophils % (A) 0.6 %; HCT 35.4 % (37.2-46.3); HGB 11.2 g/dL (12.0-15.0); Immature Grans, Automated 0.3 %; Lymphocytes # (A) 2.22 X 10*3/uL (0.90-5.00); Lymphocytes % (A) 20.6 %; MCH 27.6 pg (27.0-32.0); MCHC 31.6 g/dL (32.0-37.0); MCV 87.2 fL (80.0-97.0); Mean Platelet Volume 12.3 fL (9.5-12.2); Monocytes # (A) 0.73 X 10*3/uL (0.20-1.00); Monocytes % (A) 6.8 %; NRBC Per 100 WBC 0 /100 WBCS (0.0-0.0); Neutrophils # (A) 7.71 X 10*3/uL (1.80-7.70); Neutrophils % (A) 71.3 %; Platelet Count 212 X 10*3/uL (140-440); RBC 4.06 X 10*6/uL (4.10-5.20); RDW 14.1 % (11.5-14.5)
[2021-12-04 09:26] VITALS: RESP 16
[2021-12-04 09:26] LABS: African American GFR (CKD) 119.8 (60.0-200.0); Anion Gap 8.1 mmol/L (10.00-18.00); BUN/Creat Ratio 22.5 Ratio (12.00-20.00); Blood Urea Nitrogen 13.5 mg/dL (9.0-27.0); Calcium 8.9 mg/dL (8.7-10.3); Carbon Dioxide 24.9 mmol/L (20.0-27.5); Non-African American GFR(CKD) 103.3 (60.0-200.0); Potassium 3.6 mmol/L (3.5-5.5)
[2021-12-04] MEDS ORDERED: ACETAMINOPHEN TAB 500 MG TAB PO PRN (09:53)
[2021-12-04 12:28] LABS: Glucose,Whole Blood 187 mg/dL (70-110)
--- NOTE | 2021-12-04 13:26 | P.DS ---
Providers Date of admission: 12/02/21 07:00 Expected date of discharge: 12/04/21 Attending physician: Jennifer Packer Primary care physician: Tim Barnes DO Hospital Course: Discharge diagnoses; Intractable nausea and vomiting Mild colitis. Infectious versus inflammatory. Hyperglycemia with uncontrolled diabetes type 1 Hypokalemia History of marijuana use Hypertension ADD/ADHD Plan: Outpatient follow-up with PCP Being discharged on insulin Levemir 10 units daily. Resume metformin and insulin sliding scale Hospital course; Patient is a 56-year-old female with a known history of diabetes type 1, ADD/ADHD, currently everyday smoker and marijuana use presented to ER with complaints of nausea and vomiting started yesterday. Patient is also having abdominal pain mainly in the epigastric region. No complaints of chest pain or shortness of breath. Patient Snoopy getting into DKA and presented to ER for evaluation. Denies any dysuria or hematuria. No fever no chills. No headache or dizziness or lightheadedness. Laboratory data showed WBC 21.3 hemoglobin 13.0 and platelets 247 Sodium 137 potassium 3.4 bicarb is 23 BUN 12 and creatinine 0.52 and is still negative Chest x-ray showed no acute cardiopulmonary disease. No change. CT of the abdomen pelvis showed similar nondistention of the colon which may represent mild colitis. Correlate clinically. Stable left adrenal gland with some asymptomatic inflammatory changes. Etiology uncertain. Similar round hypodense lesions throughout the spleen of uncertain etiology. 12/03/2021 Patient is lying in the bed awake alert and oriented x3. Nausea vomiting is much improved. Patient did have a bowel movement this morning. Will be started on clear liquid diet and advance as tolerated. No complaints of chest pain or shortness of breath. Abdominal pain is better. No dysuria or hematuria. No cough or sputum production. Patient's blood sugars elevated this morning and was given a dose of Levemir 10 units and continue with insulin sliding scale. Patient does use metformin and insulin sliding scale at home. Leukocytosis improving. Follow-up CBC and BMP tomorrow. Anticipate discharge in next 24 hours with hemoglobin. 12/04/21. Patient seen and examined. Nausea and vomiting had resolved. Patient currently tolerating diet. Being discharged on Levemir. Patient to continue insulin sliding scale and metformin PHYSICAL EXAMINATION: GENERAL: The patient is alert and oriented x3, not in any acute distress. Well developed, well nourished. HEENT: Pupils are round and equally reacting to light. EOMI. No scleral icterus. No conjunctival pallor. Normocephalic, atraumatic. No pharyngeal erythema. No thyromegaly. CARDIOVASCULAR: S1 and S2 present. No murmurs, rubs, or gallops. PULMONARY: Chest is clear to auscultation, no wheezing or crackles. ABDOMEN: Soft, nontender, nondistended, normoactive bowel sounds. No palpable organomegaly. MUSCULOSKELETAL: No joint swelling or deformity. EXTREMITIES: No cyanosis, clubbing, or pedal edema. NEUROLOGICAL: Gross neurological examination did not reveal any focal deficits. SKIN: No rashes. Patient Condition at Discharge: Fair Plan - Discharge Summary Discharge Rx Participant: Yes New Discharge Prescriptions: New Insulin Detemir (Levemir) [Levemir] 10 unit SQ DAILY@0700 #300 each Continue Dextroamphetamine/Amphetamine [Adderall] 20 mg PO DAILY metFORMIN HCL 500 mg PO TID Citalopram Hydrobromide [Citalopram HBr] 20 mg PO DAILY INSULIN ASPART (NovoLOG) [NovoLOG (formulary)] See Protocol SQ TID-W/MEALS PRN PRN Reason: HIGH BLOOD SUGAR Discharge Medication List Dextroamphetamine/Amphetamine [Adderall] 20 mg PO DAILY 07/20/19 [History] Citalopram Hydrobromide [Citalopram HBr] 20 mg PO DAILY 12/02/21 [History] INSULIN ASPART (NovoLOG) [NovoLOG (formulary)] See Protocol SQ TID-W/MEALS PRN 12/02/21 [History] metFORMIN HCL 500 mg PO TID 12/02/21 [History] Insulin Detemir (Levemir) [Levemir] 10 unit SQ DAILY@0700 #300 each 12/04/21 [Rx] Follow up Appointment(s)/Referral(s): Tim Barnes DO [Primary Care Provider] - 1-2 days
[2021-12-04 14:11] VITALS: BP 165/78; PULSE 62; TEMP 98.2
== END 2021-12-04 14:27 | disposition home or self-care (01) ==
LOC: EC 05:06 → 6NMEDSUR 07:00
PROVIDERS: ADMIT Hospitalist; ATTEND Hospitalist
DX: K52.9 Noninfective gastroenteritis and colitis, unspecified (principal); E10.65 Type 1 diabetes mellitus with hyperglycemia; E87.6 Hypokalemia; I10 Essential (primary) hypertension; F90.9 Attention-deficit hyperactivity disorder, unspecified type; F17.200 Nicotine dependence, unspecified, uncomplicated; Z79.4 Long term (current) use of insulin; Z79.84 Long term (current) use of oral hypoglycemic drugs; Z79.899 Other long term (current) drug therapy; Z98.891 History of uterine scar from previous surgery; Z98.51 Tubal ligation status
CPT/HCPCS: 96376 ×3; 96361 ×3; 96372 ×3; 96374; 96375; 99285; 36415; 94640; 93005; 80053 ×2; 80048; 82009; 83735 ×2; 84100 ×2; 84484; 85025 ×3; 81001; 83036; 71045; 74177; G0378 ×3; J0780; J2405 ×2; J1170; Q9967; J1644 ×3

== ENCOUNTER 2021-12-15 23:52 | Observation (INO) | payer BC ==
[2021-12-15 23:59] LABS: Glucose,Whole Blood 266 mg/dL (70-110)
[2021-12-16] MEDS ORDERED: SODIUM CHLORIDE 0.9% 1,000 ML IV STA (00:18)
[2021-12-16 00:41] LABS: ALT 19 U/L (4-34); AST 39 U/L (14-36); African American GFR (CKD) >90 (>60 ml/min/1.73 sqM); Albumin 4.9 g/dL (3.5-5.0); Alkaline Phosphatase 72 U/L (38-126); Anion Gap 15 mmol/L; Blood Urea Nitrogen 20 mg/dL (7-17); Carbon Dioxide 26 mmol/L (22-30); Chloride 88 mmol/L (98-107); Glucose 291 mg/dL (74-99); Non-African American GFR(CKD) >90 (>60 ml/min/1.73 sqM); Sodium 129 mmol/L (137-145); Total Bilirubin 1.2 mg/dL (0.2-1.3); Total Protein 7.9 g/dL (6.3-8.2)
[2021-12-16 00:47] LABS: Lipase 3445 U/L (23-300)
--- NOTE | 2021-12-16 01:08 | XR ---
EXAMINATION TYPE: XR KUB DATE OF EXAM: 12/16/2021 COMPARISON: NONE HISTORY: Abdominal pain TECHNIQUE: 2 views upright FINDINGS: There is no sign of intestinal obstruction or pneumoperitoneum. Fecal pattern is normal. Sofia ng bases are clear. No pathologic calcifications. IMPRESSION: Nonacute abdomen.
[2021-12-16 01:19] LABS: Amylase 396 U/L (30-110); Potassium 4.6 mmol/L (3.5-5.1)
[2021-12-16] MEDS ORDERED: ONDANSETRON 4 MG/2 ML VIAL IVP STA (01:30)
[2021-12-16] MEDS ORDERED: MORPHINE SULFATE 4 MG/ML SYRINGE IV STA (01:30)
[2021-12-16] MEDS ORDERED: INSULIN REGULAR 100 UNIT/ML VIAL (IV) IV STA (01:31)
[2021-12-16 01:46] LABS: Basophils # (A) 0.1 k/uL (0-0.2); Basophils % (A) 0 %; Eosinophils # (A) 0.1 k/uL (0-0.7); Eosinophils % (A) 1 %; HCT 49.5 % (34.0-46.0); HGB 15.8 gm/dL (11.4-16.0); Lymphocytes # (A) 2.6 k/uL (1.0-4.8); Lymphocytes % (A) 15 %; MCH 27.5 pg (25.0-35.0); MCHC 31.9 g/dL (31.0-37.0); MCV 86.3 fL (80.0-100.0); Mean Platelet Volume 9.7; Monocytes # (A) 0.9 k/uL (0-1.0); Monocytes % (A) 5 %; Neutrophils # (A) 13.3 k/uL (1.3-7.7); Neutrophils % (A) 78 %; Platelet Count 294 k/uL (150-450); RBC 5.73 m/uL (3.80-5.40); RDW 12.9 % (11.5-15.5); WBC 17.1 k/uL (3.8-10.6)
--- NOTE | 2021-12-16 02:43 | CT ---
EXAMINATION TYPE: CT abdomen pelvis wo con DATE OF EXAM: 12/16/2021 COMPARISON: 12/02/2021 HISTORY: N/V X 7 DAYS, UPPER ABD PAIN CT DLP: 574.1 mGycm Automated exposure control for dose reduction was used. Images obtained from the diaphragm to the floor of the pelvis with no contrast. The lung bases are clear. No pleural effusion. Heart size is normal. No pericardial effusion. Liver spleen and stomach pancreas appear intact. The bile ducts are not dilated. There is no adrenal mass. Kidneys have normal size. No hydronephrosis. Ureters are not dilated. No re troperitoneal adenopathy. Appendix is posterior appears normal. Bladder distends smoothly. Uterus is anteverted. No pelvic mass. No inguinal hernia. No free fluid in the pelvis. There is no mesenteric edema. No ascites or free air. No sign of a bowel obstruction. There are some jejunal loops in the left upper quadrant with mild wall thickening. The lumbar vertebra appear intact. No compression fracture. The bony pelvis is intact. The hip joints are intact. IMPRESSION: Proximal jejunal wall thickening could be some gastroenteritis. No bowel obstruction. No renal stone or obstruction.
[2021-12-16 03:14] LABS: Appearance,Urine Cloudy (Clear); Bacteria,Urine Rare /hpf; Bilirubin,Urine Negative (Negative); Blood,Urine Negative (Negative); Color,Urine Yellow; Glucose,Urine (UA) 4+ (Negative); Hyaline Casts,Urine 3 /lpf (0-2); Leukocyte Esterase,Urine Small (Negative); Mucus,Urine Moderate /hpf; Nitrite,Urine Negative (Negative); PH, Urine 6.5 (5.0-8.0); Protein,Urine 1+ (Negative); RBC,Urine 37 /hpf (0-5); Specific Gravity,Urine 1.028 (1.001-1.035); Squamous Epithelial Cell,Urine 8 /hpf (0-4); WBC,Urine 5 /hpf (0-5)
[2021-12-16 03:24] LABS: Ketones,Urine 4+ (Negative)
[2021-12-16 04:44] LABS: Glucose,Whole Blood 163 mg/dL (70-110)
[2021-12-16] MEDS ORDERED: ONDANSETRON 4 MG/2 ML VIAL IVP PRN (06:25)
[2021-12-16] MEDS ORDERED: NALOXONE 0.4 MG/ML 1 ML VIAL IV PRN (06:25)
[2021-12-16] MEDS ORDERED: HYDROmorphone 1 MG/ML 1 ML SYRINGE IVP PRN (06:25)
[2021-12-16] MEDS ORDERED: ACETAMINOPHEN TAB 325 MG TAB PO PRN (06:25)
[2021-12-16] MEDS: SODIUM CHLORIDE 0.9% 1,000 ML IV SCH ×3 (06:39→19:58)
--- NOTE | 2021-12-16 07:40 | ED ---
Abdominal Pain HPI - General Chief Complaint: Abdominal Pain Stated Complaint: Vomiting, weakness Time Seen by Provider: 12/16/21 01:13 Source: patient Mode of arrival: ambulatory Limitations: no limitations - History of Present Illness Initial Comments: This patient is 56-year-old woman who presents for evaluation of mainly nausea and vomiting. She states that symptoms have been going back nearly a week now. She states she has had persistent nausea and some episodes of vomiting. There is also some upper abdominal discomfort occasionally into the back. No worsening or relieving factors noted. She has not noted fever or chills. No hematemesis. No change in urination or bowel movements. MD Complaint: abdominal pain -: days(s) Location: LUQ, RUQ, epigastric Radiation: back Migration to: no migration Severity: moderate Quality: aching Consistency: constant Improves With: nothing Worsens With: nothing Associated Symptoms: nausea, vomiting - Related Data Home Medications Medication Instructions Recorded Confirmed Dextroamphetamine/Amphetamine 20 mg PO DAILY 07/20/19 12/16/21 [Adderall] Citalopram Hydrobromide 20 mg PO DAILY 12/02/21 12/16/21 [Citalopram HBr] INSULIN ASPART (NovoLOG) [NovoLOG See Protocol SQ TID-W/MEALS PRN 12/02/21 12/16/21 (formulary)] metFORMIN HCL 500 mg PO TID 12/02/21 12/16/21 Losartan [Cozaar] 25 mg PO DAILY 12/16/21 12/16/21 Omeprazole [PriLOSEC] 20 mg PO DAILY 12/16/21 12/16/21 Previous Rx's Medication Instructions Recorded Insulin Detemir (Levemir) [Levemir] 10 unit SQ DAILY@0700 #300 each 12/04/21 Allergies Allergy/AdvReac Type Severity Reaction Status Date / Time No Known Allergies Allergy Verified 12/16/21 12:57 Review of Systems ROS Statement: Those systems with pertinent positive or pertinent negative responses have been documented in the HPI. ROS Other: All systems not noted in ROS Statement are negative. Constitutional: Denies: fever, weakness Respiratory: Denies: cough, dyspnea Cardiovascular: Denies: chest pain, palpitations, edema Gastrointestinal: Reports: abdominal pain, nausea, vomiting. Denies: diarrhea, constipation, hematemesis, melena, hematochezia Genitourinary: Denies: dysuria, frequency, hematuria Musculoskeletal: Denies: back pain Skin: Denies: rash Neurological: Denies: headache, weakness, numbness Past Medical History Past Medical History: Diabetes Mellitus History of Any Multi-Drug Resistant Organisms: None Reported Past Surgical History: Section, Tubal Ligation Past Anesthesia/Blood Transfusion Reactions: No Reported Reaction Additional Past Anesthesia/Blood Transfusion Reaction / Comment(s): slept longer than anticipated Past Psychological History: ADD/ADHD Smoking Status: Current every day smoker Past Alcohol Use History: None Reported Past Drug Use History: Marijuana - Past Family History Mother Family Medical History: Cancer Additional Family Medical History / Comment(s): skin cancer Father Family Medical History: Cancer Additional Family Medical History / Comment(s): lung cancer General Exam Limitations: no limitations General appearance: alert, in no apparent distress Head exam: Present: atraumatic, normocephalic Eye exam: Present: normal appearance. Absent: scleral icterus, conjunctival injection Neck exam: Present: normal inspection Respiratory exam: Present: normal lung sounds bilaterally. Absent: respiratory distress, wheezes, rales, rhonchi, stridor Cardiovascular Exam: Present: regular rate, normal rhythm, normal heart sounds. Absent: systolic murmur, diastolic murmur, rubs, gallop GI/Abdominal exam: Present: soft, tenderness (Is mild upper abdominal tenderness no rebound or guarding.). Absent: distended, guarding, rebound, rigid, pulsatile mass, hernia Extremities exam: Present: normal inspection, normal capillary refill. Absent: pedal edema, calf tenderness Back exam: Present: normal inspection. Absent: CVA tenderness (R), CVA tenderness (L) Neurological exam: Present: alert Skin exam: Present: warm, dry, intact, normal color. Absent: rash Course Vital Signs 12/15/21 12/16/21 12/16/21 23:55 01:27 03:16 Temperature 98.3 F 98.5 F Pulse Rate 89 86 65 Respiratory 20 16 16 Rate Blood Pressure 163/97 136/85 156/85 O2 Sat by Pulse 100 99 99 Oximetry 12/16/21 12/16/21 06:44 12:37 Temperature Pulse Rate 80 65 Respiratory 16 16 Rate Blood Pressure 123/65 141/77 O2 Sat by Pulse 98 98 Oximetry Medical Decision Making - Lab Data Result diagrams: 12/18/21 06:56 12/17/21 07:30 Lab Results 12/15/21 12/16/21 12/16/21 Range/Units 23:57 00:03 00:03 WBC 17.1 H (3.8-10.6) k/uL RBC 5.73 H (3.80-5.40) m/uL Hgb 15.8 (11.4-16.0) gm/dL Hct 49.5 H (34.0-46.0) % MCV 86.3 (80.0-100.0) fL MCH 27.5 (25.0-35.0) pg MCHC 31.9 (31.0-37.0) g/dL RDW 12.9 (11.5-15.5) % Plt Count 294 (150-450) k/uL MPV 9.7 Neutrophils % 78 % Lymphocytes % 15 % Monocytes % 5 % Eosinophils % 1 % Basophils % 0 % Neutrophils # 13.3 H (1.3-7.7) k/uL Lymphocytes # 2.6 (1.0-4.8) k/uL Monocytes # 0.9 (0-1.0) k/uL Eosinophils # 0.1 (0-0.7) k/uL Basophils # 0.1 (0-0.2) k/uL Sodium 129 L (137-145) mmol/L Potassium 4.6 (3.5-5.1) mmol/L Chloride 88 L (98-107) mmol/L Carbon Dioxide 26 (22-30) mmol/L Anion Gap 15 mmol/L BUN 20 H (7-17) mg/dL Creatinine 0.57 (0.52-1.04) mg/dL Est GFR (CKD-EPI)AfAm >90 (>60 ml/min/1.73 sqM) Est GFR (CKD-EPI)NonAf >90 (>60 ml/min/1.73 sqM) Glucose 291 H (74-99) mg/dL POC Glucose (mg/dL) 266 H (70-110) mg/dL POC Glu Vascular Manager ID Reid Aly Calcium 10.0 (8.4-10.2) mg/dL Total Bilirubin 1.2 (0.2-1.3) mg/dL AST 39 H (14-36) U/L ALT 19 (4-34) U/L Alkaline Phosphatase 72 (38-126) U/L Troponin I (0.000-0.034) ng/mL Total Protein 7.9 (6.3-8.2) g/dL Albumin 4.9 (3.5-5.0) g/dL Triglycerides (0.00-149.00) mg/dL Amylase 396 H* (30-110) U/L Lipase 3445 H (23-300) U/L Urine Color Urine Appearance (Clear) Urine pH (5.0-8.0) Ur Specific [place] (1.001-1.035) Urine Protein (Negative) Urine Glucose (UA) (Negative) Urine Ketones (Negative) Urine Blood (Negative) Urine Nitrite (Negative) Urine Bilirubin (Negative) Urine Urobilinogen (<2.0) mg/dL Ur Leukocyte Esterase (Negative) Urine RBC (0-5) /hpf Urine WBC (0-5) /hpf Ur Squamous Epith Cells (0-4) /hpf Urine Bacteria (None) /hpf Hyaline Casts (0-2) /lpf Urine Mucus (None) /hpf 12/16/21 12/16/21 12/16/21 Range/Units 00:03 00:17 01:21 WBC (3.8-10.6) k/uL RBC (3.80-5.40) m/uL Hgb (11.4-16.0) gm/dL Hct (34.0-46.0) % MCV (80.0-100.0) fL MCH (25.0-35.0) pg MCHC (31.0-37.0) g/dL RDW (11.5-15.5) % Plt Count (150-450) k/uL MPV Neutrophils % % Lymphocytes % % Monocytes % % Eosinophils % % Basophils % % Neutrophils # (1.3-7.7) k/uL Lymphocytes # (1.0-4.8) k/uL Monocytes # (0-1.0) k/uL Eosinophils # (0-0.7) k/uL Basophils # (0-0.2) k/uL Sodium (137-145) mmol/L Potassium (3.5-5.1) mmol/L Chloride (98-107) mmol/L Carbon Dioxide (22-30) mmol/L Anion Gap mmol/L BUN (7-17) mg/dL Creatinine (0.52-1.04) mg/dL Est GFR (CKD-EPI)AfAm (>60 ml/min/1.73 sqM) Est GFR (CKD-EPI)NonAf (>60 ml/min/1.73 sqM) Glucose (74-99) mg/dL POC Glucose (mg/dL) (70-110) mg/dL POC Glu Vascular Manager ID Calcium (8.4-10.2) mg/dL Total Bilirubin (0.2-1.3) mg/dL AST (14-36) U/L ALT (4-34) U/L Alkaline Phosphatase (38-126) U/L Troponin I 0.024 (0.000-0.034) ng/mL Total Protein (6.3-8.2) g/dL Albumin (3.5-5.0) g/dL Triglycerides 235.00 H (0.00-149.00) mg/dL Amylase (30-110) U/L Lipase (23-300) U/L Urine Color Yellow Urine Appearance Cloudy H (Clear) Urine pH 6.5 (5.0-8.0) Ur Specific [place] 1.028 (1.001-1.035) Urine Protein 1+ H (Negative) Urine Glucose (UA) 4+ H (Negative) Urine Ketones 4+ H (Negative) Urine Blood Negative (Negative) Urine Nitrite Negative (Negative) Urine Bilirubin Negative (Negative) Urine Urobilinogen 3.0 (<2.0) mg/dL Ur Leukocyte Esterase Small H (Negative) Urine RBC 37 H (0-5) /hpf Urine WBC 5 (0-5) /hpf Ur Squamous Epith Cells 8 H (0-4) /hpf Urine Bacteria Rare H (None) /hpf Hyaline Casts 3 H (0-2) /lpf Urine Mucus Moderate H (None) /hpf 12/16/21 Range/Units 04:42 WBC (3.8-10.6) k/uL RBC (3.80-5.40) m/uL Hgb (11.4-16.0) gm/dL Hct (34.0-46.0) % MCV (80.0-100.0) fL MCH (25.0-35.0) pg MCHC (31.0-37.0) g/dL RDW (11.5-15.5) % Plt Count (150-450) k/uL MPV Neutrophils % % Lymphocytes % % Monocytes % % Eosinophils % % Basophils % % Neutrophils # (1.3-7.7) k/uL Lymphocytes # (1.0-4.8) k/uL Monocytes # (0-1.0) k/uL Eosinophils # (0-0.7) k/uL Basophils # (0-0.2) k/uL Sodium (137-145) mmol/L Potassium (3.5-5.1) mmol/L Chloride (98-107) mmol/L Carbon Dioxide (22-30) mmol/L Anion Gap mmol/L BUN (7-17) mg/dL Creatinine (0.52-1.04) mg/dL Est GFR (CKD-EPI)AfAm (>60 ml/min/1.73 sqM) Est GFR (CKD-EPI)NonAf (>60 ml/min/1.73 sqM) Glucose (74-99) mg/dL POC Glucose (mg/dL) 163 H (70-110) mg/dL POC Glu Vascular Manager ID Reid Aly Calcium (8.4-10.2) mg/dL Total Bilirubin (0.2-1.3) mg/dL AST (14-36) U/L ALT (4-34) U/L Alkaline Phosphatase (38-126) U/L Troponin I (0.000-0.034) ng/mL Total Protein (6.3-8.2) g/dL Albumin (3.5-5.0) g/dL Triglycerides (0.00-149.00) mg/dL Amylase (30-110) U/L Lipase (23-300) U/L Urine Color Urine Appearance (Clear) Urine pH (5.0-8.0) Ur Specific [place] (1.001-1.035) Urine Protein (Negative) Urine Glucose (UA) (Negative) Urine Ketones (Negative) Urine Blood (Negative) Urine Nitrite (Negative) Urine Bilirubin (Negative) Urine Urobilinogen (<2.0) mg/dL Ur Leukocyte Esterase (Negative) Urine RBC (0-5) /hpf Urine WBC (0-5) /hpf Ur Squamous Epith Cells (0-4) /hpf Urine Bacteria (None) /hpf Hyaline Casts (0-2) /lpf Urine Mucus (None) /hpf Disposition Clinical Impression: Abdominal pain, Vomiting, Pancreatitis, Hyperglycemia Disposition: ADMITTED IP TO THIS HOSP Condition: Fair Is patient prescribed a controlled substance at d/c from ED?: No
[2021-12-16] MEDS: FAMOTIDINE 20 MG TAB PO SCH ×2 (10:05→19:57)
--- NOTE | 2021-12-16 10:15 | P.GSCN ---
History of Present Illness Consult date: 12/16/21 Reason for Consult: Pancreatitis History of present illness: 56-year-old female with history of diabetes presents to the hospital with 5-6 day history of epigastric abdominal pain. Pain radiates to the mid back. She has had constant nausea and vomiting. Applications blood sugars have been elevated as well. Denies alcohol use. No history of known gallstones. She has not had a bowel movement for several days. She has had an episode similar to this when she had DKA with pancreatitis in the past years ago. She states that this episode is not as bad as that one was. Last ultrasound the abdomen 2 years ago and no gallstones seen. No change in the color of her skin urine or stool. Review of Systems The patient denies any acute changes in vision or hearing, no dysphagia or odynophagia, no chest pain or shortness of breath, no dysuria or hematuria, no headache, no runny nose, no rectal bleeding or melena, no unexplained weight loss Past Medical History Past Medical History: Diabetes Mellitus History of Any Multi-Drug Resistant Organisms: None Reported Past Surgical History: Section, Tubal Ligation Past Anesthesia/Blood Transfusion Reactions: No Reported Reaction Additional Past Anesthesia/Blood Transfusion Reaction / Comm: slept longer than anticipated Past Psychological History: ADD/ADHD Smoking Status: Current every day smoker Past Alcohol Use History: None Reported Past Drug Use History: Marijuana Medications and Allergies Home Medications Medication Instructions Recorded Confirmed Type Dextroamphetamine/Amphetamine 20 mg PO DAILY 07/20/19 12/02/21 History [Adderall] Citalopram Hydrobromide 20 mg PO DAILY 12/02/21 12/02/21 History [Citalopram HBr] INSULIN ASPART (NovoLOG) [NovoLOG See Protocol SQ TID-W/MEALS PRN 12/02/21 12/02/21 History (formulary)] metFORMIN HCL 500 mg PO TID 12/02/21 12/02/21 History Insulin Detemir (Levemir) [Levemir] 10 unit SQ DAILY@0700 #300 each 12/04/21 Rx Allergies Allergy/AdvReac Type Severity Reaction Status Date / Time No Known Allergies Allergy Verified 12/02/21 12:06 Surgical - Exam Vital Signs Temp Pulse Resp BP Pulse Ox 98.3 F 89 20 163/97 100 12/15/21 23:55 12/15/21 23:55 12/15/21 23:55 12/15/21 23:55 12/15/21 23:55 Physical exam: General: Well-developed, well-nourished HEENT: Normocephalic, sclerae nonicteric Abdomen: Mild epigastric tenderness, nondistended Extremities: No edema Neuro: Alert and oriented Results - Labs 12/16/21 00:03 12/16/21 00:03 Abnormal Lab Results - Last 24 Hours (Table) 12/15/21 12/16/21 12/16/21 Range/Units 23:57 00:03 00:03 WBC 17.1 H (3.8-10.6) k/uL RBC 5.73 H (3.80-5.40) m/uL Hct 49.5 H (34.0-46.0) % Neutrophils # 13.3 H (1.3-7.7) k/uL Sodium 129 L (137-145) mmol/L Chloride 88 L (98-107) mmol/L BUN 20 H (7-17) mg/dL Glucose 291 H (74-99) mg/dL POC Glucose (mg/dL) 266 H (70-110) mg/dL AST 39 H (14-36) U/L Amylase 396 H* (30-110) U/L Lipase 3445 H (23-300) U/L Urine Appearance (Clear) Urine Protein (Negative) Urine Glucose (UA) (Negative) Urine Ketones (Negative) Ur Leukocyte Esterase (Negative) Urine RBC (0-5) /hpf Ur Squamous Epith Cells (0-4) /hpf Urine Bacteria (None) /hpf Hyaline Casts (0-2) /lpf Urine Mucus (None) /hpf 12/16/21 12/16/21 Range/Units 01:21 04:42 WBC (3.8-10.6) k/uL RBC (3.80-5.40) m/uL Hct (34.0-46.0) % Neutrophils # (1.3-7.7) k/uL Sodium (137-145) mmol/L Chloride (98-107) mmol/L BUN (7-17) mg/dL Glucose (74-99) mg/dL POC Glucose (mg/dL) 163 H (70-110) mg/dL AST (14-36) U/L Amylase (30-110) U/L Lipase (23-300) U/L Urine Appearance Cloudy H (Clear) Urine Protein 1+ H (Negative) Urine Glucose (UA) 4+ H (Negative) Urine Ketones 4+ H (Negative) Ur Leukocyte Esterase Small H (Negative) Urine RBC 37 H (0-5) /hpf Ur Squamous Epith Cells 8 H (0-4) /hpf Urine Bacteria Rare H (None) /hpf Hyaline Casts 3 H (0-2) /lpf Urine Mucus Moderate H (None) /hpf Diabetes panel 12/16/21 Range/Units 00:03 Sodium 129 L (137-145) mmol/L Potassium 4.6 (3.5-5.1) mmol/L Chloride 88 L (98-107) mmol/L Carbon Dioxide 26 (22-30) mmol/L BUN 20 H (7-17) mg/dL Creatinine 0.57 (0.52-1.04) mg/dL Glucose 291 H (74-99) mg/dL Calcium 10.0 (8.4-10.2) mg/dL AST 39 H (14-36) U/L ALT 19 (4-34) U/L Alkaline Phosphatase 72 (38-126) U/L Total Protein 7.9 (6.3-8.2) g/dL Albumin 4.9 (3.5-5.0) g/dL Calcium panel 12/16/21 Range/Units 00:03 Calcium 10.0 (8.4-10.2) mg/dL Albumin 4.9 (3.5-5.0) g/dL Pituitary panel 12/16/21 Range/Units 00:03 Sodium 129 L (137-145) mmol/L Potassium 4.6 (3.5-5.1) mmol/L Chloride 88 L (98-107) mmol/L Carbon Dioxide 26 (22-30) mmol/L BUN 20 H (7-17) mg/dL Creatinine 0.57 (0.52-1.04) mg/dL Glucose 291 H (74-99) mg/dL Calcium 10.0 (8.4-10.2) mg/dL Adrenal panel 12/16/21 Range/Units 00:03 Sodium 129 L (137-145) mmol/L Potassium 4.6 (3.5-5.1) mmol/L Chloride 88 L (98-107) mmol/L Carbon Dioxide 26 (22-30) mmol/L BUN 20 H (7-17) mg/dL Creatinine 0.57 (0.52-1.04) mg/dL Glucose 291 H (74-99) mg/dL Calcium 10.0 (8.4-10.2) mg/dL Total Bilirubin 1.2 (0.2-1.3) mg/dL AST 39 H (14-36) U/L ALT 19 (4-34) U/L Alkaline Phosphatase 72 (38-126) U/L Total Protein 7.9 (6.3-8.2) g/dL Albumin 4.9 (3.5-5.0) g/dL Assessment and Plan (1) Pancreatitis Narrative/Plan: 56-year-old female with pancreatitis. Etiology unclear at this time however elevated triglycerides the most likely etiology given the patient's history of DKA. Continue IV hydration. Continue bowel rest for now. May have ice chips. Recheck labs tomorrow. We'll check abdominal ultrasound. Current Visit: Yes Status: Acute Code(s): K85.90 - ACUTE PANCREATITIS WITHOUT NECROSIS OR INFECTION, UNSP SNOMED Code(s): 55321115
--- NOTE | 2021-12-16 12:31 | US ---
EXAMINATION TYPE: US gallbladder DATE OF EXAM: 12/16/2021 COMPARISON: CT abdomen pelvis same date CLINICAL HISTORY: Pancreatitis. TECHNIQUE: Multiple sonographic images of the right upper quadrant are obtained. FINDINGS: EXAM MEASUREMENTS: Liver Length: 13.4 cm Gallbladder Wall: 0.2 cm CBD: 0.5 cm Right Kidney: 11.8 x 4.8 x 6.1 cm PUBLICITY DIRECTOR NOTES: Pancreas: Obscured by bowel gas Liver: There is a coarse echotexture present. Gallbladder: wnl Evidence for sonographic Farley's sign: No CBD: wnl Right Kidney: No hydronephrosis or masses seen IMPRESSION: Exam is somewhat limited technically. Correlate for possible hepatic steatosis, hepatocellular diseas e.
[2021-12-16 15:44] LABS: Glucose,Whole Blood 187 mg/dL (70-110)
[2021-12-16] MEDS: HEPARIN SODIUM,PORCINE/PF 5,000 UNIT/0.5 ML SYRINGE SQ SCH ×2 (17:39→23:44)
[2021-12-16 19:56] LABS: Glucose,Whole Blood 206 mg/dL (70-110)
[2021-12-16] MEDS: INSULIN ASPART (NovoLOG) 100 UNIT/ML VIAL SQ SCH (20:57)
--- NOTE | 2021-12-16 21:22 | P.HPIM ---
History of Present Illness H&P Date: 12/16/21 Chief Complaint: nausea and vomiting Patient is a 56-year-old female with a known history of diabetes type 2, on metformin and insulin sliding scale at home, currently everyday smoker and ADD/ADHD presents to ER with complaints of abdominal pain. Patient states that she has been having symptoms for the past 1 week and worsened last night which made her come to ER. Pain is mainly in the epigastric and to the back and across the upper abdomen. Associated nausea and unable to take any oral intake. Denies any hematemesis. No complaints of fever or chills. No headache or dizziness or lightheadedness. No cough or sputum production. No chest pain or shortness of breath. KUB x-ray showed nonacute abdomen CT abdomen pelvis showed proximal duodenal wall thickening could be some gastroenteritis. No bowel obstruction. No renal stone or obstruction. Gallbladder ultrasound showed somewhat limited technically. Correlate for possible hepatic steatosis, hepatocellular disease Laboratory data showed WBC 17.1 hemoglobin 15.8 and platelets 294 Sodium 129 potassium 4.6 chloride 88 bicarb is 26 BUN 20 and creatinine 0.57, AST 39 ALT 19 and alk phos 72 Triglycerides 235 and amylase 396 and lipase 3445 Urinalysis showed 1+ protein 4+ glucose 4+ ketones and elevated RBCs. Small leukoesterase. Review of Systems Constitutional: Patient denies any fever or chills . no Generalized weakness. Abdomen: Patient does have nausea vomiting and abdominal pain Cardiovascular: Patient denies any chest pain or short of breath no palpitations. Respiratory: patient denied any cough . no sputum production. No shortness of breath Neurologic: Patient denied any numbness or tingling headache. Musculoskeletal: Patient denies any complaints of joint swelling or deformity. Skin: Negative Psychiatric: Negative Endocrine: No heat or cold intolerance. No recent weight gain. Genitourinary: No dysuria or hematuria. All other 14 point ROS negative except the above Past Medical History Past Medical History: Diabetes Mellitus History of Any Multi-Drug Resistant Organisms: None Reported Past Surgical History: Section, Tubal Ligation Past Anesthesia/Blood Transfusion Reactions: No Reported Reaction Additional Past Anesthesia/Blood Transfusion Reaction / Comment(s): slept longer than anticipated Past Psychological History: ADD/ADHD Smoking Status: Current every day smoker Past Alcohol Use History: None Reported Past Drug Use History: Marijuana - Past Family History Mother Family Medical History: Cancer Additional Family Medical History / Comment(s): skin cancer Father Family Medical History: Cancer Additional Family Medical History / Comment(s): lung cancer Medications and Allergies Home Medications Medication Instructions Recorded Confirmed Type Dextroamphetamine/Amphetamine 20 mg PO DAILY 07/20/19 12/16/21 History [Adderall] Citalopram Hydrobromide 20 mg PO DAILY 12/02/21 12/16/21 History [Citalopram HBr] INSULIN ASPART (NovoLOG) [NovoLOG See Protocol SQ TID-W/MEALS PRN 12/02/2112/01 History (formulary)] metFORMIN HCL 500 mg PO TID 12/02/21 12/16/21 History Insulin Detemir (Levemir) [Levemir] 10 unit SQ DAILY@0700 #300 each 12/04/21 12/16/21 Rx Losartan [Cozaar] 25 mg PO DAILY 12/16/21 12/16/21 History Omeprazole [PriLOSEC] 20 mg PO DAILY 12/16/21 12/16/21 History Allergies Allergy/AdvReac Type Severity Reaction Status Date / Time No Known Allergies Allergy Verified 12/16/21 12:57 Physical Exam Vitals: Vital Signs Temp Pulse Resp BP Pulse Ox 12/16/21 06:44 80 16 123/65 98 12/16/21 03:16 65 16 156/85 99 12/16/21 01:27 98.5 F 86 16 136/85 99 12/15/21 23:55 98.3 F 89 20 163/97 100 Intake and Output 12/15/21 12/16/21 12/16/21 22:59 06:59 14:59 Other: Weight 78.925 kg PHYSICAL EXAMINATION: Patient is lying in the bed comfortably, no acute distress, awake alert and oriented.. HEENT: Normocephalic. Neck is supple. Pupils reactive. Nostrils clear. Oral cavity is moist. Neck reveals no JVD, carotid bruits, or thyromegaly. CHEST EXAMINATION: Trachea is central. Symmetrical expansion. Lung fowler clear to auscultation and percussion. CARDIAC: Normal S1, S2 with no gallops. No murmurs ABDOMEN: Soft. Bowel sounds present. Epigastric tenderness. Mild.. No organomegaly. No abdominal bruits. Extremities: reveal no edema. No clubbing or cyanosis Neurologically awake, alert, oriented x3 with well-coordinated movements. No focal deficits noted Skin: No rash or skin lesions. Psychiatric: Coperative. Nonsuicidal, Musculoskeletal: No joint swelling or deformity. Normal range of motion. Results CBC & Chem 7: 12/16/21 00:03 12/16/21 00:03 Labs: Abnormal Lab Results - Last 24 Hours (Table) 12/15/21 12/16/21 12/16/21 Range/Units 23:57 00:03 00:03 WBC 17.1 H (3.8-10.6) k/uL RBC 5.73 H (3.80-5.40) m/uL Hct 49.5 H (34.0-46.0) % Neutrophils # 13.3 H (1.3-7.7) k/uL Sodium 129 L (137-145) mmol/L Chloride 88 L (98-107) mmol/L BUN 20 H (7-17) mg/dL Glucose 291 H (74-99) mg/dL POC Glucose (mg/dL) 266 H (70-110) mg/dL AST 39 H (14-36) U/L Amylase 396 H* (30-110) U/L Lipase 3445 H (23-300) U/L Urine Appearance (Clear) Urine Protein (Negative) Urine Glucose (UA) (Negative) Urine Ketones (Negative) Ur Leukocyte Esterase (Negative) Urine RBC (0-5) /hpf Ur Squamous Epith Cells (0-4) /hpf Urine Bacteria (None) /hpf Hyaline Casts (0-2) /lpf Urine Mucus (None) /hpf 12/16/21 12/16/21 Range/Units 01:21 04:42 WBC (3.8-10.6) k/uL RBC (3.80-5.40) m/uL Hct (34.0-46.0) % Neutrophils # (1.3-7.7) k/uL Sodium (137-145) mmol/L Chloride (98-107) mmol/L BUN (7-17) mg/dL Glucose (74-99) mg/dL POC Glucose (mg/dL) 163 H (70-110) mg/dL AST (14-36) U/L Amylase (30-110) U/L Lipase (23-300) U/L Urine Appearance Cloudy H (Clear) Urine Protein 1+ H (Negative) Urine Glucose (UA) 4+ H (Negative) Urine Ketones 4+ H (Negative) Ur Leukocyte Esterase Small H (Negative) Urine RBC 37 H (0-5) /hpf Ur Squamous Epith Cells 8 H (0-4) /hpf Urine Bacteria Rare H (None) /hpf Hyaline Casts 3 H (0-2) /lpf Urine Mucus Moderate H (None) /hpf Thrombosis Risk Factor Assmnt - DVT/VTE Prophylaxis DVT/VTE Prophylaxis: Pharmacologic Prophylaxis ordered Assessment and Plan Assessment: Abdominal pain secondary to acute pancreatitis. Etiology could be elevated triglyceride levels and high-fat diet Intractable nausea and vomiting Prior history of acute pancreatitis Hyperglycemic uncontrolled diabetes type 2 Leukocytosis Hypovolemic hyponatremia DVT prophylaxis Heparin subcu Plan: Patient will be continued on IV hydration with normal saline at 1 130 cc/h. Continuous pain management with IV Dilaudid and symptomatic management for nausea vomiting. Patient will be started on insulin regimen and follow blood sugar closely. Recent A1c level is 8.5. General surgery is on board. Continue to follow. Time with Patient: Greater than 30
[2021-12-16] MEDS: FAMOTIDINE 20 MG/2 ML VIAL IV SCH (22:12)
[2021-12-17] MEDS: INSULIN ASPART (NovoLOG) 100 UNIT/ML VIAL SQ SCH ×4 (07:19→21:06)
[2021-12-17 07:24] LABS: Glucose,Whole Blood 143 mg/dL (70-110)
[2021-12-17] MEDS: FAMOTIDINE 20 MG/2 ML VIAL IV SCH ×2 (08:27→21:05)
[2021-12-17] MEDS: SODIUM CHLORIDE 0.9% 1,000 ML IV SCH ×2 (08:28→14:37)
[2021-12-17] MEDS: HEPARIN SODIUM,PORCINE/PF 5,000 UNIT/0.5 ML SYRINGE SQ SCH ×2 (08:28→16:48)
[2021-12-17] MEDS: INSULIN DETEMIR (LEVEMIR) 100 UNIT/ML SYR SQ SCH (08:28)
[2021-12-17 11:35] LABS: Basophils # (A) 0.05 X 10*3/uL (0.00-0.10); Basophils % (A) 0.4 %; Eosinophils # (A) 0.24 X 10*3/uL (0.04-0.35); HCT 41.1 % (37.2-46.3); Immature Grans, Automated 0.3 %; Lymphocytes # (A) 3.41 X 10*3/uL (0.90-5.00); Lymphocytes % (A) 28.4 %; MCH 27.7 pg (27.0-32.0); MCHC 31.6 g/dL (32.0-37.0); MCV 87.6 fL (80.0-97.0); Mean Platelet Volume 11.9 fL (9.5-12.2); Monocytes % (A) 6.7 %; NRBC Per 100 WBC 0 /100 WBCS (0.0-0.0); Neutrophils # (A) 7.47 X 10*3/uL (1.80-7.70); Neutrophils % (A) 62.2 %; Platelet Count 272 X 10*3/uL (140-440); RBC 4.69 X 10*6/uL (4.10-5.20); RDW 13.2 % (11.5-14.5); WBC 12.01 X 10*3/uL (4.50-10.00)
[2021-12-17 11:38] LABS: African American GFR (CKD) 119.8 (60.0-200.0); Albumin/Globulin Ratio 2.11 (1.60-3.17); Anion Gap 9.2 mmol/L (10.00-18.00); BUN/Creat Ratio 18.17 Ratio (12.00-20.00); Blood Urea Nitrogen 10.9 mg/dL (9.0-27.0); Carbon Dioxide 23.8 mmol/L (20.0-27.5); Globulin 1.9 g/dL (1.6-3.3); Non-African American GFR(CKD) 103.3 (60.0-200.0); Total Bilirubin 0.5 mg/dL (0.30-1.20); Total Protein 5.9 g/dL (6.2-8.2)
--- NOTE | 2021-12-17 11:54 | P.PN ---
Subjective Progress Note Date: 12/17/21 CHIEF COMPLAINT: Pancreatitis HISTORY OF PRESENT ILLNESS: Patient reports improvement in her abdominal pain. She did have some mild nausea. No vomiting. She rates her pain about a 2 out of 10. She does report that her urine was dark. Gallbladder ultrasound correlate for possible hepatic steatosis, hepatocellular disease. Afebrile. WBC is down from 17.1-12 hemoglobin 13 platelets 272. Sodium is 134 potassium is 4 creatinine 0.6 total bilirubin 0.5 AST 11 ALT 10 alk phos 57 lipase has normalized from 3445-38 triglycerides elevated at 239 PHYSICAL EXAM: VITAL SIGNS: Reviewed. GENERAL: Well-developed in no acute distress. HEENT: No sclera icterus. Extraocular movements grossly intact. Moist buccal mucosa. Head is atraumatic, normocephalic. ABDOMEN: Soft. Nondistended. Minimal epigastric discomfort NEUROLOGIC: Alert and oriented. Cranial nerves II through XII grossly intact. ASSESSMENT: 1. Acute pancreatitis 2. Elevated triglyceride level 3. Diabetes PLAN: -Advance diet to clear liquids -Continue IV fluids -Continue supportive care Physician Deflector Operator note has been reviewed by physician. Signing provider agrees with the documented findings, assessment, and plan of care. I have personally seen and examined the patient, reviewed the PAINTER DRUM /PAs history, exam and MDM and agree with the assessment and plan as written. Based on total visit time, I have performed more than 50% of the visit. As above: Patient doing better today. Pain is improved. Pancreatic enzymes also normalized. Ultrasound negative for gallstones. Etiology unclear but could be on the basis of hyper triglyceridemia. Gradually advance diet. Will follow. Objective - Vital Signs Vital signs: Vital Signs Temp 98.5 F 12/17/21 08:00 Pulse 66 12/17/21 08:00 Resp 17 12/17/21 08:00 BP 148/77 12/17/21 08:00 Pulse Ox 100 12/17/21 08:00 FiO2 Intake & Output 12/16/21 12/17/21 12/17/21 18:59 06:59 18:59 Weight 78.925 kg Other: Voiding Method Toilet # Voids 1 - Labs CBC & Chem 7: 12/17/21 07:30 12/17/21 07:30 Labs: Abnormal Lab Results - Last 24 Hours (Table) 12/16/21 12/16/21 12/16/21 Range/Units 00:03 15:42 19:54 WBC (4.50-10.00) X 10*3/uL MCHC (32.0-37.0) g/dL Sodium (135-145) mmol/L Anion Gap (10.00-18.00) mmol/L Glucose (70-110) mg/dL POC Glucose (mg/dL) 187 H 206 H (70-110) mg/dL AST (13-35) U/L Total Protein (6.2-8.2) g/dL Triglycerides 235.00 H (0.00-149.00) mg/dL 12/17/21 12/17/21 12/17/21 Range/Units 07:16 07:30 07:30 WBC 12.01 H (4.50-10.00) X 10*3/uL MCHC 31.6 L (32.0-37.0) g/dL Sodium 134 L (135-145) mmol/L Anion Gap 9.20 L (10.00-18.00) mmol/L Glucose 177 H (70-110) mg/dL POC Glucose (mg/dL) 143 H (70-110) mg/dL AST 11 L (13-35) U/L Total Protein 5.9 L (6.2-8.2) g/dL Triglycerides 239.00 H (0.00-149.00) mg/dL
[2021-12-17 11:58] LABS: Glucose,Whole Blood 179 mg/dL (70-110)
[2021-12-17 14:10] VITALS: BMI 28.0
[2021-12-17 16:21] LABS: Glucose,Whole Blood 140 mg/dL (70-110)
[2021-12-17 21:05] LABS: Glucose,Whole Blood 206 mg/dL (70-110)
[2021-12-18] MEDS: HEPARIN SODIUM,PORCINE/PF 5,000 UNIT/0.5 ML SYRINGE SQ SCH ×2 (00:38→07:30)
[2021-12-18] MEDS: SODIUM CHLORIDE 0.9% 1,000 ML IV SCH ×3 (00:38→15:09)
[2021-12-18 07:26] LABS: Glucose,Whole Blood 218 mg/dL (70-110)
[2021-12-18] MEDS: FAMOTIDINE 20 MG/2 ML VIAL IV SCH (07:29)
[2021-12-18] MEDS: INSULIN DETEMIR (LEVEMIR) 100 UNIT/ML SYR SQ SCH (07:30)
[2021-12-18] MEDS: INSULIN ASPART (NovoLOG) 100 UNIT/ML VIAL SQ SCH ×2 (07:30→12:11)
--- NOTE | 2021-12-18 07:34 | PN ---
PROGRESS NOTE SUBJECTIVE: This is a 56-year-old woman, who was admitted with acute pancreatitis, also had elevated triglyceride level. Surgery is following the patient. No chest pain. No palpitations. No fever. PHYSICAL EXAMINATION: VITAL SIGNS: Pulse is 66, blood pressure 148/76, respirations 17. CHEST: Clear to auscultation. ABDOMEN: Soft, minimal discomfort. No guarding. No rigidity. CARDIOVASCULAR: S1, S2 normal. LABS: Reviewed. ASSESSMENT: 1. Acute pancreatitis, possibly secondary to hypertriglyceridemia. Rule out gallstones. 2. Thickening of the jejunum. 3. Diabetes mellitus type 2. RECOMMENDATIONS AND DISCUSSION: This is a 56-year-old woman, who presented with multiple medical issues. At this time, I recommend to continue current medications. Continue symptomatic treatment. Otherwise, monitor blood sugars closely. Repeat labs and advance diet per Surgery. Further recommendations to follow. MMADNIAL / PADDYN: [id number] /
[2021-12-18 10:38] LABS: Basophils # (A) 0.03 X 10*3/uL (0.00-0.10); Basophils % (A) 0.3 %; Eosinophils # (A) 0.19 X 10*3/uL (0.04-0.35); HCT 37.7 % (37.2-46.3); HGB 12.2 g/dL (12.0-15.0); Immature Grans, Automated 0.3 %; Lymphocytes # (A) 2.27 X 10*3/uL (0.90-5.00); Lymphocytes % (A) 24.3 %; MCH 28.3 pg (27.0-32.0); MCHC 32.4 g/dL (32.0-37.0); MCV 87.5 fL (80.0-97.0); Mean Platelet Volume 12.1 fL (9.5-12.2); Monocytes # (A) 0.55 X 10*3/uL (0.20-1.00); Monocytes % (A) 5.9 %; NRBC Per 100 WBC 0 /100 WBCS (0.0-0.0); Neutrophils # (A) 6.28 X 10*3/uL (1.80-7.70); Neutrophils % (A) 67.2 %; Platelet Count 242 X 10*3/uL (140-440); RBC 4.31 X 10*6/uL (4.10-5.20); RDW 13.2 % (11.5-14.5); WBC 9.35 X 10*3/uL (4.50-10.00)
[2021-12-18 10:50] LABS: African American GFR (CKD) 119.1 (60.0-200.0); Albumin 3.9 g/dL (3.8-4.9); Albumin/Globulin Ratio 1.96 (1.60-3.17); Anion Gap 8.7 mmol/L (10.00-18.00); BUN/Creat Ratio 7.22 Ratio (12.00-20.00); Blood Urea Nitrogen 4.4 mg/dL (9.0-27.0); Calcium 9.2 mg/dL (8.7-10.3); Carbon Dioxide 24.1 mmol/L (20.0-27.5); Non-African American GFR(CKD) 102.7 (60.0-200.0); Potassium 4.1 mmol/L (3.5-5.5); Total Bilirubin 0.4 mg/dL (0.30-1.20); Total Protein 5.9 g/dL (6.2-8.2)
[2021-12-18 12:06] LABS: Glucose,Whole Blood 216 mg/dL (70-110)
--- NOTE | 2021-12-18 12:51 | P.PN ---
Subjective Progress Note Date: 12/18/21 CHIEF COMPLAINT: Pancreatitis HISTORY OF PRESENT ILLNESS: Patient continues to show improvement. She has very minimal epigastric tenderness. She is tolerating clear liquid diet. She's been seen by GI service they've advanced her diet to regular. Her lipase has normalized. Her nausea is improving. Afebrile. White count normalized from 12-9.35 lipase 35 LFTs are normal triglyceride level 239. Ultrasound negative for gallstones. PHYSICAL EXAM: VITAL SIGNS: Reviewed. GENERAL: Well-developed in no acute distress. HEENT: No sclera icterus. Extraocular movements grossly intact. Moist buccal m ucosa. Head is atraumatic, normocephalic. ABDOMEN: Soft. Nondistended. Minimal epigastric discomfort NEUROLOGIC: Alert and oriented. Cranial nerves II through XII grossly intact. ASSESSMENT: 1. Acute pancreatitis 2. Elevated triglyceride level 3. Diabetes PLAN: -Diet advanced per GI service to carb consistent, low-fat -Continue supportive care -Consulted dietitian to educate patient on low-fat, carb consistent diet Physician Chemist Pharmaceutical note has been reviewed by physician. Signing provider agrees with the documented findings, assessment, and plan of care. I have personally seen and examined the patient, reviewed the SUGAR REPROCESS OPERATOR HEAD /PAs history, exam and MDM and agree with the assessment and plan as written. Based on total visit time, I have performed more than 50% of the visit. As above: Patient doing well today. Pancreatitis clinically improved. Continue slowly advancing diet. May discharge. Objective - Vital Signs Vital signs: Vital Signs Temp 97.5 F L 12/18/21 07:44 Pulse 67 12/18/21 07:44 Resp 18 12/18/21 07:44 BP 134/66 12/18/21 07:44 Pulse Ox 100 12/18/21 07:44 FiO2 Intake & Output 12/17/21 12/18/21 12/18/21 18:59 06:59 18:59 Intake Total 10 Balance 10 Weight 78.925 kg Intake: IV 10 Invasive Line 2 10 Other: Voiding Method Toilet # Voids 3 3 # Bowel Movements 2 - Labs CBC & Chem 7: 12/18/21 06:56 12/18/21 06:56 Labs: Abnormal Lab Results - Last 24 Hours (Table) 12/17/21 12/17/21 12/18/21 Range/Units 16:19 20:54 06:56 Anion Gap 8.70 L (10.00-18.00) mmol/L BUN 4.4 L (9.0-27.0) mg/dL BUN/Creatinine Ratio 7.22 L (12.00-20.00) Ratio Glucose 182 H (70-110) mg/dL POC Glucose (mg/dL) 140 H 206 H (70-110) mg/dL Total Protein 5.9 L (6.2-8.2) g/dL 12/18/21 12/18/21 Range/Units 07:25 12:03 Anion Gap (10.00-18.00) mmol/L BUN (9.0-27.0) mg/dL BUN/Creatinine Ratio (12.00-20.00) Ratio Glucose (70-110) mg/dL POC Glucose (mg/dL) 218 H 216 H (70-110) mg/dL Total Protein (6.2-8.2) g/dL
[2021-12-18 13:57] VITALS: BP 147/68; PULSE 82; RESP 16; TEMP 97.6
--- NOTE | 2021-12-18 14:03 | P.CONS ---
History of Present Illness - Reason for Consult Consult date: 12/18/21 pancreatitis Requesting physician: Keegan E Sheet - Chief Complaint Abdominal pain - History of Present Illness This a pleasant 56-year-old female who presented to the emergency department with complaints of abdominal pain mostly in the right upper quadrant region. She has a past medical history of insulin dependent diabetes, tobacco abuse, and attention deficit disorder. States she's been in and out of the hospital for the last 1 month duration not feeling well. She was last seen in the emergency department at [facility] where she states she was told that she had pancreatitis and was sent home. She states that they believe that the underlying cause was alcohol use however patient states that she does not use alcohol regularly. States last time she had anything to drink was over a year ago. She does admit to nicotine abuse as well as marijuana use. States abdominal pain has improved she no longer has any nausea or vomiting. She had a CT of the abdomen and pelvis without contrast which reportedly proximal jejunal wall thickening could be some gastroenteritis. No bowel obstruction. No renal stone or obstruction. Patient also had ultrasound of the gallbladder shows gallbladder within normal limits, and no stones or CBD dilation. On admission she was noted to have a lipase of 3445, no elevation in her LFTs. Repeat amylase and lipase normal. Gastroenterology was consulted for pancreatitis. SHe denies any previous history of pancreatitis, no family history of pancreatitis, only new medication is citalopram which she believe she started 3- 4 months ago. On admission her glucose was elevated at 266, triglycerides. She currently states she has some mild right epigastric discomfort, no nausea or vomiting. She has been tolerating liquid diet. She's been up and ambulating. Bowel movements have been normal, loose. She's been afebrile. Review of Systems REVIEW OF SYSTEMS: CARDIOPULMONARY: No chest pain or shortness of breath. Gastrointestinal: Right epigastric pain. No nausea or vomiting. No h ematemesis, coffee-ground emesis. No rectal bleeding, or melena. GENITOURINARY: No dysuria or hematuria. MUSCULOSKELETAL: Reports normal range of motion. SKIN: No rashes. No jaundice. ENDOCRINE: No chills, fevers. No excessive weight gain or loss. No polydipsia or polyuria. PSYCHIATRIC: Unremarkable. NEUROLOGY: No change in mental status. Denies dizziness, headache. ENT: Vision unremarkable. CONSTITUTIONAL: No recent weight loss. No fever, chills, night sweats. Past Medical History Past Medical History: Diabetes Mellitus History of Any Multi-Drug Resistant Organisms: None Reported Past Surgical History: Section, Tubal Ligation Past Anesthesia/Blood Transfusion Reactions: No Reported Reaction Additional Past Anesthesia/Blood Transfusion Reaction / Comm: slept longer than anticipated Past Psychological History: ADD/ADHD Smoking Status: Current every day smoker Past Alcohol Use History: None Reported Past Drug Use History: Marijuana - Past Family History Mother Family Medical History: Cancer Additional Family Medical History / Comment(s): skin cancer Father Family Medical History: Cancer Additional Family Medical History / Comment(s): lung cancer Medications and Allergies Home Medications Medication Instructions Recorded Confirmed Type Dextroamphetamine/Amphetamine 20 mg PO DAILY 07/20/19 12/16/21 History [Adderall] Citalopram Hydrobromide 20 mg PO DAILY 12/02/21 12/16/21 History [Citalopram HBr] INSULIN ASPART (NovoLOG) [NovoLOG See Protocol SQ TID-W/MEALS PRN 12/02/21 12/16/21 History (formulary)] metFORMIN HCL 500 mg PO TID 12/02/21 12/16/21 History Insulin Detemir (Levemir) [Levemir] 10 unit SQ DAILY@0700 #300 each 12/04/21 12/16/21 Rx Losartan [Cozaar] 25 mg PO DAILY 12/16/21 12/16/21 History Omeprazole [PriLOSEC] 20 mg PO DAILY 12/16/21 12/16/21 History Allergies Allergy/AdvReac Type Severity Reaction Status Date / Time No Known Allergies Allergy Verified 12/16/21 12:57 Physical Exam Vitals: Vital Signs Temp Pulse Resp BP Pulse Ox 12/18/21 07:44 97.5 F L 67 18 134/66 100 12/18/21 02:35 97.5 F L 63 17 147/71 100 12/17/21 20:00 98.4 F 69 16 153/80 99 12/17/21 14:00 98.6 F 63 17 133/73 100 Intake and Output 12/17/21 12/18/21 12/18/21 22:59 06:59 14:59 Intake Total 10 Balance 10 Intake: IV 10 Invasive Line 2 10 Other: Voiding Method Toilet # Voids 3 3 # Bowel Movements 2 General appearance: The patient is alert, oriented, appears in no acute distress. HET: Head is normocephalic and atraumatic. Conjunctiva pink. Sclera anicteric. Neck: Supple without lymphadenopathy. Trachea midline. Heart: S1 S2. Regular rate and rhythm. Lungs: Clear to auscultation. Abdomen: Soft, right upper quadrant tenderness, nondistended with bowel sounds. No guarding or rigidity. Skin: No rashes. No jaundice. Extremities: Normal skin color and turgor. No pedal edema. Neurological: No focal deficits. Alert and oriented x3. Results CBC & Chem 7: 12/18/21 06:56 12/18/21 06:56 Labs: Abnormal Lab Results - Last 24 Hours (Table) 12/17/21 12/17/21 12/17/21 Range/Units 07:30 07:30 11:57 WBC 12.01 H (4.50-10.00) X 10*3/uL MCHC 31.6 L (32.0-37.0) g/dL Sodium 134 L (135-145) mmol/L Anion Gap 9.20 L (10.00-18.00) mmol/L Glucose 177 H (70-110) mg/dL POC Glucose (mg/dL) 179 H (70-110) mg/dL AST 11 L (13-35) U/L Total Protein 5.9 L (6.2-8.2) g/dL Triglycerides 239.00 H (0.00-149.00) mg/dL 12/17/21 12/17/21 12/18/21 Range/Units 16:19 20:54 07:25 WBC (4.50-10.00) X 10*3/uL MCHC (32.0-37.0) g/dL Sodium (135-145) mmol/L Anion Gap (10.00-18.00) mmol/L Glucose (70-110) mg/dL POC Glucose (mg/dL) 140 H 206 H 218 H (70-110) mg/dL AST (13-35) U/L Total Protein (6.2-8.2) g/dL Triglycerides (0.00-149.00) mg/dL CT scan - abdomen: report reviewed US - abdomen: report reviewed Assessment and Plan (1) Pancreatitis Narrative/Plan: 56-year-old female presented with right upper quadrant pain with noted elevated amylase and lipase. Lipase is high as 3445 on admission with repeat down to 38. Patient had elevated sugars she's had issues with diabetic ketoacidosis recently was hospitalized approximately one month ago. She was initially seen within the last week at an outside hospital for pancreatitis in the emergency room and was sent home. She continued to have abdominal pain and nausea and vomiting and came here for further evaluation. No history of pancreatitis, patient denies any alcohol use, she has some nicotine dependence as well as regularly smokes marijuana. No new medications and no family history. Likely this is uncomplicated mild pancreatitis, unknown etiology at this time. In a IgG ordered. If patient has recurrent episode she was told to follow-up with gastroenterology. Otherwise patient is cleared for discharge. Current Visit: Yes Status: Acute Code(s): K85.90 - ACUTE PANCREATITIS WITHOUT NECROSIS OR INFECTION, UNSP SNOMED Code(s): 18670723 Plan: 1. Continue symptomatic supportive care 2. Antiemetics as needed 3. Advanced to consistent carbohydrate diet 4. If patient tolerates diet she may be discharged 5. Patient instructed if any further episodes of pancreatitis recommend outpatient follow-up with gastroenterology 6. Strict glycemic control Thank you for this consultation, we will sign off at this time. Dr. Jass Richards I agree with the dictator's note, documented as a scribe by Shanna Obando.
--- NOTE | 2021-12-20 10:37 | P.DS ---
Providers Date of admission: 12/16/21 06:25 Expected date of discharge: 12/18/21 Attending physician: Juan R Iraheta Consults: 12/16/21 07:36 Consult Physician Routine Consulting Provider: Jeff Lira Consult Reason/Comments: abdominal pain Do you want consulting provider notified?: Yes 12/17/21 15:58 Consult Physician Routine Consulting Provider: Ada Richards Consult Reason/Comments: pancreatitis Do you want consulting provider notified?: Yes Primary care physician: Tim Barnes DO Hospital Course: Final diagnosis Acute pancreatitis, possibly secondary to hypertriglyceridemia, ruled out gallstones Thickening of the jejunum Diabetes mellitus type 2 Continued ongoing nicotine dependence History of ADD/ADHD Full code Discharge disposition Patient is being discharged in a stable condition with guarded prognosis to home . Patient will follow-up with Dr. Barnes in the outpatient setting upon discharge. Patient is to follow-up with GI along with general surgery in one week. Total time taken is greater than 35 minutes. Hospital course This is a 56 year-old female who was recently admitted With acute pancreatitis also had elevated Trager slurred levels. Patient was evaluated by surgery with no emergent need for surgical intervention at this time recommending outpatient follow-up. Patient also to follow-up with GI in the outpatient setting as patient has been having attacks like this. Discussed possible gallstone passing and if patient continues with persistent discomfort and symptoms recommend following up sooner along with possible second opinion as patient had mentioned she wanted to do. Patient currently able to tolerate solid foods and will be discharged home. Amylase/lipase levels are normal. Currently no reports of chest pain, shortness of breath, or palpitations. Patient is afebrile. No reports of nausea or vomiting and patient is tolerating diet. Patient will be discharged home today. guarded prognosis Physical exam: Gen: This is 56-year-old female awake, alert and oriented 3, well-developed, well-nourished. heenT: Head is atraumatic, normocephalic. Pupils equal, round. Sclerae is anicteric. NECK: Supple. No JVD. No lymphadenopathy. No thyromegaly. LUNG: diminished breath sounds bilaterally with no wheezing or rhonchi noted. No intercostal retractions. HEART: S1, S2 muffled ABDOMEN: Soft. Bowel sounds are present. No masses. mild tenderness on deep palpation. EXTREMITIES: No pedal edema. No calf tenderness. NEUROLOGICAL: Patient is awake, alert and oriented x3. Cranial nerves 2 through 12 are grossly intact. Please refer to medication reconciliation sheet for a list of medications. The impression and plan of care has been dictated by Mei Lu, Nurse Practitioner as directed. Dr. Ochoa MD I have performed a history and examination and MDM of this patient, discussed the same with the dictator, and agree with the dictator's assessment and plan as written ,documented as a scribe. Based on total visit time, I have performed more than 50% of the visit. Patient Condition at Discharge: Fair Plan - Discharge Summary New Discharge Prescriptions: Continue Dextroamphetamine/Amphetamine [Adderall] 20 mg PO DAILY metFORMIN HCL 500 mg PO TID Citalopram Hydrobromide [Citalopram HBr] 20 mg PO DAILY Insulin Detemir (Levemir) [Levemir] 10 unit SQ DAILY@0700 #300 each Omeprazole [PriLOSEC] 20 mg PO DAILY Losartan [Cozaar] 25 mg PO DAILY INSULIN ASPART (NovoLOG) [NovoLOG (formulary)] See Protocol SQ TID-W/MEALS PRN PRN Reason: HIGH BLOOD SUGAR Discharge Medication List Dextroamphetamine/Amphetamine [Adderall] 20 mg PO DAILY 07/20/19 [History] Citalopram Hydrobromide [Citalopram HBr] 20 mg PO DAILY 12/02/21 [History] INSULIN ASPART (NovoLOG) [NovoLOG (formulary)] See Protocol SQ TID-W/MEALS PRN 12/02/21 [History] metFORMIN HCL 500 mg PO TID 12/02/21 [History] Insulin Detemir (Levemir) [Levemir] 10 unit SQ DAILY@0700 #300 each 12/04/21 [Rx] Losartan [Cozaar] 25 mg PO DAILY 12/16/21 [History] Omeprazole [PriLOSEC] 20 mg PO DAILY 12/16/21 [History] Follow up Appointment(s)/Referral(s): Jeff Lira MD [Medical Doctor] - 1 Week (patients wants to make appointment ) Tim Barnes DO [Primary Care Provider] - 1 Week (patient want to make appointment ) Ada Richards MD [STAFF PHYSICIAN] - 1 Week (patient wants to make appointment ) Patient Instructions/Handouts: Pancreatitis (DC), Low Fiber Diet (DC) Activity/Diet/Wound Care/Special Instructions: Activity Limited until follow-up Follow-up with primary care provider on discharge Follow-up with surgery outpatient Continue consistent carb low fat low fiber diet and slowly advance as tolerated Follow-up with GI outpatient Discharge Disposition: HOME SELF-CARE
== END 2021-12-18 14:53 | disposition home or self-care (01) ==
LOC: EC 23:52 → INTOOBSV 12-16 06:25 → 4SSUR 12-16 06:25
PROVIDERS: ADMIT Internal Medicine; ATTEND Internal Medicine
DX: K85.90 Acute pancreatitis without necrosis or infection, unspecified (principal); E78.1 Pure hyperglyceridemia; E11.65 Type 2 diabetes mellitus with hyperglycemia; F90.9 Attention-deficit hyperactivity disorder, unspecified type; D72.829 Elevated white blood cell count, unspecified; E86.1 Hypovolemia; E87.1 Hypo-osmolality and hyponatremia; F17.200 Nicotine dependence, unspecified, uncomplicated; Z79.4 Long term (current) use of insulin; Z79.84 Long term (current) use of oral hypoglycemic drugs; Z79.899 Other long term (current) drug therapy
CPT/HCPCS: 96361 ×3; 96372 ×4; 96375 ×3; 96376 ×2; 96374; 99285; 36415 ×2; 36410; 76937; 80053 ×3; 82150 ×3; 83690 ×3; 84478 ×2; 84484; 85025 ×3; 81001; 82787; 86038; 74018; 76705; 74176; G0378 ×4; J2270; J2405; J1170; J1644 ×3